=== PATIENT | female | born 1930 | race Caucasian/White ===

== ENCOUNTER 2017-11-25 09:59 | Inpatient (IN) | payer MEDICARE ==
[~2017-11-25] VITALS: Ht 175.3 cm; Wt 85.0 kg
[~2017-11-25 09:59] MED LIST: AMOXICILLIN250 MG PO; BIOTIN2500 MCG PO; CARAFATE1 GM/10 ML PO; CARVEDILOL3.125 MG PO; CHLORPROPAMIDE250 MG PO; COREG3.125 MG PO; DESMOPRESSIN A0.2 MG PO; FUROSEMIDE40 MG PO; HYDROCODONE-APAP PO; HYOSCYAMINE0.125 MG PO; ISOSORBIDE MONO30 MG PO; LEVOTHYROXINE100 MCG PO; LISINOPRIL2.5 MG PO; LYRICA75 MG PO; Lisinopril PO; MECLIZINE HCL12.5 MG PO; MELATONIN3 MG PO; METOPROLOL TART25 MG PO; MINOCYCLINE HCL50 MG PO; MULTIVITAMINS1 EAC8 PO; NIASPAN1000 MG PO; NIASPAN500 MG PO; OMEPRAZOLE40 MG PO; POTASSIUM CHLO10 ME1 PO; PRAVASTATIN SOD40 MG PO; PREDNISONE5 M1 PO; SYNTHROID150 MCG PO; SYNTHROID75 MCG PO; TYLENOL # 31 EA PO; XARELTO10 MG PO; ZOFRAN8 MG PO; ZOLPIDEM TARTRA10 MG PO; tylenol pm PO
[2017-11-25] MEDS ORDERED: TETANUS/DIPHTHERIA TOX ADULT 0.5 ML SYR IM ONE ×2 (10:15→12:45)
[2017-11-25] MEDS ORDERED: SODIUM CHLORIDE 0.9% 500ML 500 ML IV STA (10:28)
[2017-11-25] MEDS ORDERED: ONDANSETRON HCL INJ 2 MG/ML VIAL IV STA (10:28)
[2017-11-25] MEDS ORDERED: ONDANSETRON HCL 4 MG ORAL DISINTEGRATING TAB ONE (10:31)
[2017-11-25 11:38] LABS: BASOPHILS % 0.3 % (0.0-1.0); EOSINOPHILS # (AUTO) 0.4 (0.0-0.4); EOSINOPHILS % 4.6 % (0.0-6.0); HEMATOCRIT 38.8 % (34.2-44.1); HEMOGLOBIN 12.3 g/dL (12.0-16.0); LYMPHOCYTES # (AUTO) 2.2 (1.0-3.2); LYMPHOCYTES % 23.2 % (18.0-39.1); MEAN CORPUSCULAR HEMOGLOBIN 30.8 pg (28-32); MEAN CORPUSCULAR HGB CONC 31.7 g/dL (31-35); MONOCYTES # (AUTO) 0.8 (0.2-0.8); MONOCYTES % 8.5 % (4.4-11.3); NEUTROPHILS # (AUTO) 5.9 (2.1-6.9); NEUTROPHILS % 63.1 % (38.7-80.0); PLATELET COUNT 208 x10e3/uL (140-360); RED CELL DISTRIBUTION WIDTH 13.7 % (11.7-14.4)
[2017-11-25 11:53] LABS: INR 3.71; PROTHROMBIN TIME 34.5 seconds (11.9-14.5)
[2017-11-25 11:54] LABS: PARTIAL THROMBOPLASTIN TIME 49.2 seconds (23.8-35.5)
[2017-11-25 12:00] LABS: ALANINE AMINOTRANSFERASE 36 IU/L (0-55); ALBUMIN/GLOBULIN RATIO 1.3 (0.8-2.0); ALKALINE PHOSPHATASE 129 IU/L (40-150); ANION GAP 14.1 mmol/L (8-16); BLOOD UREA NITROGEN 29 mg/dL (7-26); BUN/CREATININE RATIO 14 (6-25); CARBON DIOXIDE 35 mmol/L (22-29); CHLORIDE 91 mmol/L (98-107); CREATINE KINASE 72 IU/L (29-168); CREATININE, SERUM 2.03 mg/dL (0.57-1.11); EST GLOMERULAR FILTRATION RATE 23 ML/MIN (60-); GLUCOSE 118 mg/dL (74-118); POTASSIUM 4.1 mmol/L (3.5-5.1); SODIUM 136 mmol/L (136-145)
--- NOTE | 2017-11-25 12:10 | Diagnostic Imaging Report ---
History: Fall, pain Comparison studies:None Technique: Axial images were obtained from the brain, face and cervical spine. Coronal and sagittal reconstructions obtained from the axial data. Intravenous contrast: None Findings: Head CT: Scalp/skull: An acute right frontal/periorbital scalp hematoma is associated with subcutaneous emphysema but no hyperdense foreign bodies. No underlying fractures. Extra-axial spaces: No masses. No fluid collections. Brain sulci: Mildly prominent. Ventricles: Normal in size and configuration. No hydrocephalus. Parenchyma: Subtle hypodensities in the supratentorial white matter are small vessel ischemic changes. No masses, hemorrhage, acute or chronic cortical vascular insults. Sellar/suprasellar region: No abnormalities Craniocervical junction: Patent foramen magnum. No Chiari one malformation. Maxillofacial CT: No acute fractures A focally depressed fracture of the right nasal bone is chronic No additional maxillofacial bone abnormalities. Orbits: Bilateral lens prostheses. Otherwise, no abnormalities. Paranasal sinuses: Mild scattered mucosal thickening. Cervical spine CT: Airway: Patent. Fractures: None. Soft tissues: No gross abnormalities. Atlantoaxial articulation: Intact. Alignment: Normal lordosis. No scoliosis. Cervicomedullary junction: No abnormalities. The foramen magnum is patent. Vertebrae: No infection or neoplasm. Postoperative changes from anterior cervical discectomy and fusion at C6-C7. Postoperative changes from laminectomy at C3. 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 Degenerative changes: Moderately degenerated discs from C3 to C6. Foraminal stenosis, moderate right at C2-3 and C3-4, bilaterally at C4-5 due to uncovertebral arthrosis. Degenerative spinal canal stenosis is moderate from C3 to C6 due to disc osteophyte complexes. Incidental atherosclerotic calcifications at the carotid siphons and intradural vertebral arteries IMPRESSION: Head CT: 1. Acute right frontal/periorbital scalp hematoma. No fractures 2. No intracranial abnormalities. Chronic findings: 1. Mild generalized volume loss 2. Mild supratentorial white matter is normal vessel ischemic changes Facial CT: 1. No acute fractures. 2. Chronic focally depressed fracture of the right nasal bone No additional significant abnormalities. Cervical spine CT: 1. No acute abnormalities. No fractures 2. 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 Bilateral laminectomies at C3, anterior cervical discectomy and fusion at C6-C7. 4. Degenerative spinal canal and foraminal stenosis as described Signed by: Dr. Michael Levine M.D. on 11/25/2017 5:40 PM
--- NOTE | 2017-11-25 12:46 | Diagnostic Imaging Report ---
PROCEDURE:WRIST COMPLETE RIGHT TECHNIQUE:AP, lateral and oblique views right wrist INDICATION:Right wrist pain status post fall COMPARISON:None. FINDINGS: Right wrist and regional skeleton are intact and in anatomic alignment. Intact soft tissues. No foreign bodies. Degenerative changes at the thumb base. CONCLUSION: No evidence of acute traumatic injury. Dictated by: Joselo Jay M.D. on 11/25/2017 at 12:50 Electronically approved by: Joselo Jay M.D. on 11/25/2017 at 12:50
[2017-11-25] MEDS ORDERED: ONDANSETRON HCL INJ 2 MG/ML VIAL IV PRN (14:00)
[2017-11-25] MEDS ORDERED: TRAMADOL HCL 50 MG TAB PO PRN (14:00)
[2017-11-25] MEDS: SODIUM CHLORIDE 0.9% 1000ML 1,000 ML IV SCH ×2 (14:20→21:00)
[2017-11-25] MEDS ORDERED: PERCOCET 10-321 EACH PO (15:07)
[2017-11-25 17:56] VITALS: BP 148/74
[2017-11-25 18:13] VITALS: BP 148/74
[2017-11-25 18:30] VITALS: BP 148/74
[2017-11-25] MEDS ORDERED: DICLOFENAC TOP (18:41)
[2017-11-25] MEDS ORDERED: CENTRUM SILVER1 EAC3 PO (18:41)
[2017-11-25] MEDS ORDERED: SYNTHROID50 MCG PO (18:41)
[2017-11-25 20:00] VITALS: BP 148/77
[2017-11-25] MEDS ORDERED: MELATONIN 3 MG TAB PO SCH (21:00)
[2017-11-25] MEDS ORDERED: ZOLPIDEM TARTRATE 10 MG TAB PO SCH (21:00)
[2017-11-25] MEDS ORDERED: PRAVASTATIN 20 MG TAB PO SCH (21:00)
[2017-11-25] MEDS ORDERED: MULTIVITAMINS/MINERALS TAB PO SCH (21:00)
[2017-11-25] MEDS ORDERED: MELATONIN 5 MG TABLET PO SCH (21:00)
[2017-11-25] MEDS ORDERED: NON-FORMULARY MEDICATION (Pravastatin Sodium 40 MG) PO SCH (21:00)
[2017-11-25] MEDS ORDERED: DESMOPRESSIN ACETATE 0.2 MG TABLET PO SCH (21:00)
[2017-11-25] MEDS ORDERED: NON-FORMULARY MEDICATION (Mu-Vits-Min Th/Lycopene/Lutein (Centrum Silver Tablet) 1 TAB) PO SCH (21:00)
[2017-11-25 21:03] LABS: CREATINE KINASE MB 1.5 ng/mL (0-5.0)
[2017-11-26 00:32] VITALS: BP 143/81
[2017-11-26 04:57] VITALS: BP 135/82
[2017-11-26] MEDS ORDERED: LEVOTHYROXINE SODIUM 100 MCG TAB PO SCH (06:00)
[2017-11-26 06:29] LABS: BASOPHILS % 0.4 % (0.0-1.0); EOSINOPHILS # (AUTO) 0.3 (0.0-0.4); EOSINOPHILS % 4.6 % (0.0-6.0); HEMATOCRIT 35.9 % (34.2-44.1); HEMOGLOBIN 11.3 g/dL (12.0-16.0); LYMPHOCYTES # (AUTO) 2.1 (1.0-3.2); LYMPHOCYTES % 27.9 % (18.0-39.1); MEAN CORPUSCULAR HEMOGLOBIN 30.5 pg (28-32); MEAN CORPUSCULAR HGB CONC 31.5 g/dL (31-35); MEAN CORPUSCULAR VOLUME 96.8 fL (81-99); MONOCYTES # (AUTO) 0.7 (0.2-0.8); MONOCYTES % 9.9 % (4.4-11.3); NEUTROPHILS # (AUTO) 4.2 (2.1-6.9); NEUTROPHILS % 56.9 % (38.7-80.0); PLATELET COUNT 190 x10e3/uL (140-360); RED BLOOD COUNT 3.71 x10e6/uL (3.6-5.1); RED CELL DISTRIBUTION WIDTH 13.7 % (11.7-14.4)
[2017-11-26] MEDS ORDERED: LEVOTHYROXINE SODIUM 50 MCG TAB PO SCH (06:30)
[2017-11-26] MEDS ORDERED: FAMOTIDINE20 MG PO (07:00)
[2017-11-26 07:03] LABS: CREATINE KINASE 79 IU/L (29-168)
[2017-11-26 07:16] LABS: CHOL/HDL RATIO 2.4 (3.0-3.6)
[2017-11-26 07:22] LABS: ALBUMIN 3.7 g/dL (3.5-5.0); ALBUMIN/GLOBULIN RATIO 1.4 (0.8-2.0); ANION GAP 13.3 mmol/L (8-16); CALCIUM 8.4 mg/dL (8.4-10.2); CREATININE, SERUM 1.69 mg/dL (0.57-1.11); POTASSIUM 4.3 mmol/L (3.5-5.1)
[2017-11-26] MEDS: ONDANSETRON HCL 4 MG ORAL DISINTEGRATING TAB PO SCH ×3 (07:30→16:58)
[2017-11-26] MEDS ORDERED: NON-FORMULARY MEDICATION (Ondansetron Hcl (Zofran) 8 MG) PO SCH (07:30)
[2017-11-26] MEDS: CARVEDILOL 12.5 MG TAB PO SCH ×2 (07:30→16:59)
[2017-11-26] MEDS: FAMOTIDINE 20 MG TAB PO SCH ×2 (07:30→16:58)
[2017-11-26 07:43] VITALS: BP 153/75
[2017-11-26] MEDS ORDERED: LACTULOSE SYRUP 20 GM/30 ML UDC PO ONE (08:00)
[2017-11-26 08:20] VITALS: BP 153/75
--- NOTE | 2017-11-26 08:50 | Consultation ---
DATE OF CONSULTATION: November 25, 2017 CARDIOLOGY CONSULTATION REASON FOR CONSULTATION: Fall, AFib, and on Xarelto. HPI: This is an 87-year-old female that presented status post fall. According to the at the bedside and the patient, they went to [employer]. She was walking and her shoe got stuck on her, and she accidentally had a fall. She denied any chest pain, any palpitation, any dizziness, any shortness of breath, or diaphoresis. She has a history of CAD, AFib, and a permanent pacemaker. 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 PAST SURGICAL HISTORY: Cholecystectomy, permanent pacemaker, pituitary removal, hemorrhoidectomy, right and left knee surgery replacement, and shoulder repair. MEDICATIONS: See mid list. ALLERGIES: SHE IS ALLERGIC TO FLU SHOT, PLASTIC TAPE AND NITROGLYCERIN. SOCIAL HISTORY: No smoking. No drinking. She lives at home with her . FAMILY HISTORY: Positive for diabetes and CAD. REVIEW OF SYSTEMS: Negative except those mentioned above. She is status post fall. PHYSICAL EXAMINATION VITALS: Temperature 97, heart rate 80, blood pressure 135/82, respirations 19, oxygen saturation 96% on room air. GENERAL: She is awake, alert and oriented times 3. HEENT: Mucous membrane moist. NECK: Supple. LUNGS: Bilateral clear to auscultation. CARDIOVASCULAR: Irregularly irregular. ABDOMEN: Soft. NEUROLOGICAL: Intact. She is able to move all extremities. EXTREMITIES: Bilateral lower extremities with no edema. LABS: Sodium 133, potassium 4.3, chloride 92, CO2 32, BUN 23, creatinine 1.69, glucose 82. White blood cells 7.41, hemoglobin 11.3, hematocrit 35.9, and platelets 190,000. PT 34.5, PTT 49.2 and INR 3.71 IMPRESSION 1. Status post fall. 2. Hematoma on the forehead. 3. Coronary artery disease with permanent pacemaker. 4. Atrial fibrillation. 5. Renal insufficiency. 6. Constipation. ASSESSMENT AND PLAN 1. Will go ahead and get an echocardiogram to reassess the LV and the valve function. She had multiple bruises and hematoma on the forehead. INR is 3.71. 2. Will go ahead and hold the Xarelto. 3. Will get bilateral carotid Doppler to rule out any occlusion. 4. She recently had her permanent pacemaker checked in the office with good function. Will continue the IV fluids to help with the renal function. She complained of constipation. Will go ahead and put her on Colace and lactulose. Further cardiac workup pending clinical course. Thank you for this consultation. DICTATED BY DARIA CASTRO NP Job#: [id number] RI
[2017-11-26] MEDS ORDERED: NIACIN 500 MG TABSR PO SCH (09:00)
[2017-11-26] MEDS ORDERED: ISOSORBIDE MONONITRATE 30 MG TAB CR PO SCH (09:00)
[2017-11-26] MEDS ORDERED: DOCUSATE SODIUM LIQD 100 MG/10 ML UDC NG SCH (09:00)
[2017-11-26] MEDS ORDERED: (Biotin 5,000 MCG) PO SCH (09:00)
[2017-11-26] MEDS ORDERED: CARVEDILOL 3.125 MG TAB PO SCH (09:00)
[2017-11-26] MEDS ORDERED: NIACIN 500 MG PO SCH (09:00)
[2017-11-26] MEDS ORDERED: POTASSIUM CHLORIDE 10 MEQ TABCR PO SCH (09:00)
[2017-11-26] MEDS ORDERED: FUROSEMIDE 40 MG TAB PO SCH (09:00)
[2017-11-26] MEDS ORDERED: PREDNISONE 5 MG TAB PO SCH (09:00)
[2017-11-26] MEDS ORDERED: NON-FORMULARY MEDICATION (Prednisone 5 MG) PO SCH (09:00)
[2017-11-26] MEDS: OXYCODONE/ACETAMINOPHEN 5-325 1 EACH TABLET PO PRN ×2 (09:37→18:10)
[2017-11-26 12:08] VITALS: BP 132/68
[2017-11-26] MEDS: SODIUM CHLORIDE 0.9% 1000ML 1,000 ML IV SCH (14:21)
--- NOTE | 2017-11-26 15:38 | History and Physical ---
DATE OF SERVICE: November 25, 2017 TIME: 3:00 p.m. PRIMARY CARE PHYSICIAN: Dr. Chaney CHIEF COMPLAINT: Fall. HISTORY OF PRESENT ILLNESS: This is an 87-year-old woman with a history of congestive heart failure, urinary tract infection, who was going to [employer] when she slipped on the wet ground outside and fell hitting her head. She came to the hospital. Imaging negative for any fracture. She was admitted for further evaluation and management. PAST MEDICAL HISTORY: Pituitary tumor, status post resection in , hypertension, type unknown, generalized weakness, urinary tract infection, hypothyroidism, following pituitary resection, chronic systolic congestive heart failure, hematuria, postmenopausal bleed, hyperlipidemia, atrial fibrillation, chronic kidney disease, stage 3. PAST SURGICAL HISTORY: Permanent pacemaker placement, cholecystectomy, hemorrhoidectomy, resection of pituitary tumor in the , which was benign, bilateral knee replacement. ALLERGIES: PER ELECTRONIC MEDICAL RECORD. FAMILY/SOCIAL HISTORY: Patient's mother has history of breast cancer in her 80s. Patient is . She has 2 children. No alcohol, illicits or cigarettes. MEDICATIONS: Per electronic medical records. REVIEW OF SYSTEMS: Denies any fever, chills, shortness of breath, nausea, vomiting, diarrhea or leg pain. Denies any dysuria or chest pain. PHYSICAL EXAM VITAL SIGNS: Have been reviewed. GENERAL APPEARANCE: A tired-appearing woman resting in the bed. HEENT: Anicteric. She has a right forehead hematoma. Right eye almost closed due to surrounding edema and purpura/bruising. CARDIOVASCULAR: Normal S1, S2. LUNGS: Good breath sounds. ABDOMEN: Soft, nontender, nondistended. EXTREMITIES: No edema or calf tenderness. NEUROLOGIC: Alert, oriented times 3. Vision is normal in left eye. Right eye almost closed. SKIN: Dry. PSYCHIATRIC: Flat affect. LABS: Reviewed. MEDICATIONS: Reviewed. ASSESSMENT AND PLAN: An 87-year-old woman. 1. Fall. 2. Right scalp hematoma. 3. Right periorbital hematoma. 4. Chronic systolic congestive heart failure. 5. Acute kidney injury secondary to chronic kidney disease stage 3. 6. Paroxysmal atrial fibrillation. 7. Hypothyroidism. 8. Hypertension. 9. Hyperlipidemia. 10. Desmopressin use for pituitary surgery. PLAN 1. Physical therapy consultation. 2. Restart home antihypertensive medication. 3. Continue Synthroid. 4. Hold Xarelto today to reduce the risk of bleeding at the trauma site. Plan to restart in 1 or 2 days. 5. Check TSH. 6. Check lipid panel. 7. Cardiac enzymes negative. 8. Use Pepcid while patient is on anticoagulation. 9. Reverse coagulopathy if patient begins bleeding . 10. SNF evaluation. Job#: [id number] CQ
[2017-11-26] MEDS ORDERED: SIMVASTATIN 20 MG TAB PO SCH (21:00)
--- NOTE | 2017-12-02 01:38 | Discharge Summary ---
PRINCIPAL DIAGNOSES 1. Fall. 2. Right scalp hematoma. 3. Right periorbital hematoma. 4. Chronic systolic congestive heart failure. 5. Acute kidney injury. 6. Chronic kidney disease, stage 3. 7. Paroxysmal atrial fibrillation. 8. Hypothyroidism. 9. Hypertension. 10. Hyperlipidemia. SECONDARY DIAGNOSIS: Chronic systolic congestive heart failure. CHIEF COMPLAINT: Fall. HISTORY OF PRESENT ILLNESS: An 87-year-old female with fall. Please refer to H and P for further details. HOSPITAL COURSE: Patient had a fall with resultant right scalp hematoma and right periorbital hematoma. She had chronic systolic congestive heart failure and acute kidney injury on chronic kidney disease stage 3. Physical therapy was consulted. Antihypertensive medication was restarted. Xarelto was put on hold due to risk of bleeding. Cardiac enzymes were negative. Patient received Pepcid for GI prophylaxis. Patient was transferred to the skilled facility for physical therapy needs. DISCHARGE MEDICATION: Per electronic medical record. FOLLOWUP: With primary care doctor in 1 week. CONDITION ON DISCHARGE: Stable and improving. DISCHARGE LOCATION: retirement facility. SCARLETT CONNER MD Job#: [id number] CQ
== END 2017-11-26 18:41 | disposition home or self-care (01) | DRG 580 ==
LOC: ER 09:59 → ERHOLD 14:11 → MED/SURG 17:40
PROVIDERS: ADMIT Internal Medicine; ATTEND Internal Medicine
PROC: 0JQ10ZZ Repair Face Subcutaneous Tissue and Fascia, Open Approach (ICD-10-PCS; principal; 2017-11-25)
DX: S00.03XA Contusion of scalp, initial encounter (principal); I50.22 Chronic systolic (congestive) heart failure; I13.0 Hypertensive heart and chronic kidney disease with heart failure and stage 1 through stage 4 chronic kidney disease, or unspecified chronic kidney disease; N17.9 Acute kidney failure, unspecified; S05.11XA Contusion of eyeball and orbital tissues, right eye, initial encounter; N18.3 Chronic kidney disease, stage 3 (moderate); I48.0 Paroxysmal atrial fibrillation; E03.9 Hypothyroidism, unspecified; E78.5 Hyperlipidemia, unspecified; Z95.0 Presence of cardiac pacemaker; I25.10 Atherosclerotic heart disease of native coronary artery without angina pectoris; W01.0XXA Fall on same level from slipping, tripping and stumbling without subsequent striking against object, initial encounter; Y93.89 Activity, other specified; Y92.22 Religious institution as the place of occurrence of the external cause; K59.00 Constipation, unspecified
CPT/HCPCS: 36415; 70450; 70486; 72125; 80053; 80061; 82550; 82553; 83880; 84484; 85025; 85610; 85730; 90471; 90714; 93005; 93306; 93880; 97139; 99284; J7030; J7040; J7512

== ENCOUNTER → 2017-12-23 | Day surgery (SDC) | payer MEDICARE ==
[~2017-12-23] MED LIST changes: +CENTRUM SILVER1 EAC3 PO; +DICLOFENAC TOP; +FAMOTIDINE20 MG PO; +PERCOCET 10-321 EACH PO; +POTASSIUM CHLO20 ME1 PO; +PROPOFOL IV EMULSION 10 MG/ML 20 ML VIAL ONE; +SYNTHROID50 MCG PO
== END | disposition home or self-care (01) ==
LOC: OR 05:36
PROVIDERS: ATTEND Internal Medicine Gastroenterology
DX: K22.2 Esophageal obstruction (principal); K29.50 Unspecified chronic gastritis without bleeding; Q39.4 Esophageal web; K21.9 Gastro-esophageal reflux disease without esophagitis; K44.9 Diaphragmatic hernia without obstruction or gangrene; K31.89 Other diseases of stomach and duodenum; Q40.2 Other specified congenital malformations of stomach; E66.3 Overweight; I25.10 Atherosclerotic heart disease of native coronary artery without angina pectoris; I11.0 Hypertensive heart disease with heart failure; I50.9 Heart failure, unspecified; E27.40 Unspecified adrenocortical insufficiency; Z79.02 Long term (current) use of antithrombotics/antiplatelets; Z68.28 Body mass index [BMI] 28.0-28.9, adult; Z95.0 Presence of cardiac pacemaker; Z96.653 Presence of artificial knee joint, bilateral; Z83.79 Family history of other diseases of the digestive system
CPT/HCPCS: 43233; 43239; 88305; 88312

== ENCOUNTER 2017-12-30 10:04 | Inpatient (IN) | payer MEDICARE ==
[~2017-12-30] VITALS: Ht 172.7 cm; Wt 84.5 kg
[~2017-12-30 10:04] MED LIST changes: -PROPOFOL IV EMULSION 10 MG/ML 20 ML VIAL ONE
[2017-12-30] MEDS ORDERED: SODIUM CHLORIDE 0.9% 1000ML 2,000 ML IV ONE (10:15)
--- NOTE | 2017-12-30 10:20 | Consultation ---
DATE OF CONSULTATION: NO DICTATION, LENGTH 0:1 Job#: [id number] RI
[2017-12-30] MEDS ORDERED: DIATRIZOATE MEGL/DIATRIZOA SOD 30 ML BTL PO ONE (10:29)
[2017-12-30 11:13] LABS: BASOPHILS # (AUTO) 0.1 (0.0-0.1); BASOPHILS % 0.5 % (0.0-1.0); EOSINOPHILS # (AUTO) 0.5 (0.0-0.4); EOSINOPHILS % 4.8 % (0.0-6.0); HEMATOCRIT 31.5 % (34.2-44.1); HEMOGLOBIN 10.2 g/dL (12.0-16.0); LYMPHOCYTES # (AUTO) 3.8 (1.0-3.2); LYMPHOCYTES % 34.4 % (18.0-39.1); MEAN CORPUSCULAR HEMOGLOBIN 30.1 pg (28-32); MEAN CORPUSCULAR HGB CONC 32.4 g/dL (31-35); MEAN CORPUSCULAR VOLUME 92.9 fL (81-99); MONOCYTES # (AUTO) 0.9 (0.2-0.8); MONOCYTES % 8.4 % (4.4-11.3); NEUTROPHILS # (AUTO) 5.6 (2.1-6.9); NEUTROPHILS % 51.3 % (38.7-80.0); PLATELET COUNT 214 x10e3/uL (140-360); RED BLOOD COUNT 3.39 x10e6/uL (3.6-5.1); RED CELL DISTRIBUTION WIDTH 15.2 % (11.7-14.4)
[2017-12-30] MEDS ORDERED: SODIUM CHLORIDE 0.9% 1000ML 1,000 ML IV ONE ×2 (11:15→12:15)
[2017-12-30 11:17] LABS: INR 1.3; PROTHROMBIN TIME 15.2 seconds (11.9-14.5)
[2017-12-30 11:18] LABS: PARTIAL THROMBOPLASTIN TIME 31.2 seconds (23.8-35.5)
[2017-12-30 11:25] LABS: BILIRUBIN,URINE NEGATIVE (NEGATIVE); COLOR,URINE YELLOW (YELLOW); KETONES,URINE NEGATIVE (NEGATIVE); LEUKOCYTE ESTERASE ,URINE 2+ (NEGATIVE); NITRITE,URINE NEGATIVE (NEGATIVE); PROTEIN,URINE DIPSTICK NEGATIVE (NEGATIVE); URINE UROBILINOGEN 0.2 mg/dL (0.2 - 1)
[2017-12-30 11:25] LABS: ALBUMIN 3.1 g/dL (3.5-5.0); ALBUMIN/GLOBULIN RATIO 1.2 (0.8-2.0); ANION GAP 13.6 mmol/L (8-16); CALCIUM 9.9 mg/dL (8.4-10.2); CREATININE, SERUM 1.44 mg/dL (0.57-1.11); MAGNESIUM 1.9 MG/DL (1.3-2.1); PHOSPHORUS 2.1 MG/DL (2.3-4.7); POTASSIUM 3.6 mmol/L (3.5-5.1)
--- NOTE | 2017-12-30 11:25 | Diagnostic Imaging Report ---
PROCEDURE: A single AP view of the chest. COMPARISON: [facility], , CHEST 2 VIEWS, 05/10/2017, 5:59. INDICATIONS: GI BLEED FINDINGS: Lines/tubes: Stable left upper chest multilead cardiac device. Lungs: The lungs are well inflated and clear. There is no evidence of pneumonia or pulmonary edema. Pleura: There is no pleural effusion or pneumothorax. Heart and mediastinum: The heart and the mediastinum are unremarkable. Bones: No acute bony abnormality. IMPRESSION: 1. No acute cardiopulmonary abnormalities. Troy Bansal M.D. Dictated by: Troy Bansal M.D. on 12/30/2017 at 11:31 Electronically approved by: Troy Bansal M.D. on 12/30/2017 at 11:31
[2017-12-30 11:41] LABS: BACTERIA,URINE MANY /HPF; RBC,URINE 0-5 /HPF (0-5); WBC,URINE (MAN) >50 /HPF (0-5)
[2017-12-30 11:42] LABS: EPITHELIAL CELLS,URINE RARE /LPF
[2017-12-30 11:43] LABS: CLARITY,URINE CLOUDY (CLEAR)
--- NOTE | 2017-12-30 12:22 | Diagnostic Imaging Report ---
History: Fall, pain Comparison studies:CT head 11/25/2017 Technique: Axial images were obtained from the brain and cervical spine. Coronal and sagittal images reconstructed from the axial data. Intravenous contrast: None Findings: Head CT: Scalp/skull: Decreased left frontal scalp hematoma with residual skull thickening. No fractures, blastic or lytic lesions. Brain sulci: Appropriate for age. Ventricles: Normal in size and configuration. No hydrocephalus. Extra-axial spaces: No masses. No fluid collections. Parenchyma: Small hypodensities of the periventricular and deep white matter, nonspecific. No masses, hemorrhage, acute or chronic cortical vascular insults. Sellar/suprasellar region: No abnormalities. Craniocervical junction: Patent foramen magnum. No Chiari one malformation. Partial opacification and periosteal thickening of the right maxillary sinus, related to chronic inflammation. Bilateral cataract surgery changes. Cervical spine CT: Fractures: None. Soft tissues: No gross abnormalities. Atlantoaxial articulation: No acute abnormality. Alignment: Straightening of the normal lordosis. No scoliosis. Cervicomedullary junction: No abnormalities. Patent foramen magnum. Congenital fusion of C2 and C3. Laminectomy changes at C4. Anterior fusion with plate and screws at C6-7. Posterior fusion defect at C1 Vertebrae: No infection or neoplasm. Degenerative changes: Diffuse disc degeneration with decreased intervertebral space. Uncinate process hypertrophy and facet hypertrophy results in multilevel [id number] foraminal narrowing more significant at C5-6 and C6-7. Incidental findings: None. Impression: Head CT: 1. No acute intracranial abnormality. 2. Mild chronic microvascular ischemic changes of the white matter and mild diffuse volume loss. Cervical spine CT: 1. No acute abnormalities. 2. Cannot exclude ligament, spinal cord and or vascular abnormalities on the basis of this examination. Signed by: DR Oswaldo Acosta M.D. on 12/30/2017 12:19 PM
[2017-12-30] MEDS ORDERED: PANTOPRAZOLE 40 MG 10ML VIAL IV STA (12:56)
[2017-12-30] MEDS ORDERED: CEFTRIAXONE SOD 1 GM VIAL IV ONE (13:00)
[2017-12-30 14:35] LABS: BASOPHILS % 0.2 % (0.0-1.0); EOSINOPHILS # (AUTO) 0.4 (0.0-0.4); EOSINOPHILS % 4.7 % (0.0-6.0); HEMATOCRIT 28.9 % (34.2-44.1); HEMOGLOBIN 9.2 g/dL (12.0-16.0); LYMPHOCYTES # (AUTO) 3.2 (1.0-3.2); LYMPHOCYTES % 35.7 % (18.0-39.1); MEAN CORPUSCULAR HEMOGLOBIN 29.9 pg (28-32); MEAN CORPUSCULAR HGB CONC 31.8 g/dL (31-35); MEAN CORPUSCULAR VOLUME 93.8 fL (81-99); MONOCYTES # (AUTO) 0.8 (0.2-0.8); MONOCYTES % 8.8 % (4.4-11.3); NEUTROPHILS # (AUTO) 4.5 (2.1-6.9); NEUTROPHILS % 49.9 % (38.7-80.0); PLATELET COUNT 183 x10e3/uL (140-360); RED BLOOD COUNT 3.08 x10e6/uL (3.6-5.1); RED CELL DISTRIBUTION WIDTH 15.2 % (11.7-14.4)
[2017-12-30 15:00] LABS: ANION GAP 12.6 mmol/L (8-16); CALCIUM 7.9 mg/dL (8.4-10.2); CREATININE, SERUM 1.26 mg/dL (0.57-1.11); POTASSIUM 3.6 mmol/L (3.5-5.1)
--- NOTE | 2017-12-30 16:07 | Diagnostic Imaging Report ---
PROCEDURE: CT ABDOMEN AND PELVIS WITHOUT CONTRAST TECHNIQUE: The abdomen and pelvis were scanned utilizing a multidetector helical scanner from the diaphragm to the lesser trochanter after the oral administration of dilute Gastrografin. No IV contrast was administered due to low GFR. Coronal and sagittal multiplanar reformations were obtained. COMPARISON: [facility], CT, CT ABDOMEN/PELVIS , 05/05/2017, 16:18. INDICATIONS: LEFT LOWER QUADRANT PAIN FINDINGS: ABSENCE OF INTRAVENOUS CONTRAST DECREASES SENSITIVITY FOR DETECTION OF FOCAL LESIONS AND VASCULAR PATHOLOGY. LOWER THORAX: Distal portion of cardiac wires noted in the right atrium, right ventricle and coronary sinus. Atherosclerotic calcification of the coronary arteries and thoracic aorta. Stable cardiomegaly. HEPATOBILIARY: No focal hepatic lesions. No biliary ductal dilatation. Gallbladder is absent, with cholecystectomy clips in the gallbladder fossa SPLEEN: No splenomegaly. PANCREAS: Unchanged marked pancreatic fatty replacement. No focal mass or ductal dilation. ADRENALS: No adrenal nodules. KIDNEYS/URETERS: No hydronephrosis, stones, or solid mass lesions. Unchanged left renal atrophy. Stable 1.4 cm cystic lesion in the posterior interpolar left kidney and 1.0 cm cystic lesion in the superior pole of the right kidney (series 2, images 26 and sagittal image 44, respectively), which measure fluid density on the current exam. PELVIC ORGANS/BLADDER: Bladder is decompressed, with a Hahn catheter in place. PERITONEUM / RETROPERITONEUM: No free air or fluid. LYMPH NODES: No lymphadenopathy. VESSELS: Atherosclerotic calcification of the abdominal aorta and iliac vessels. GI TRACT: No bowel dilation or evidence of obstruction. No pericolonic inflammatory changes. Appendix is identified, and normal in caliber. Stable sigmoid diverticulosis, without diverticulitis. BONES AND SOFT TISSUES: No aggressive lytic lesions. Multilevel degenerative disc changes in the lumbosacral spine, with stable anterior wedging of the L4 vertebral body. Generalized osteopenia. Soft tissues are unremarkable. IMPRESSION: 1. no acute abdominopelvic abnormalities. Specifically, no acute abnormal findings in the left lower quadrant to explain the patient's pain. Troy Bansal M.D. Dictated by: Troy Bansal M.D. on 12/30/2017 at 16:11 Electronically approved by: Troy Bansal M.D. on 12/30/2017 at 16:11
[2017-12-30] MEDS ORDERED: ACETAMINOPHEN 325 MG TAB PO STA (17:45)
[2017-12-30] MEDS ORDERED: ACETAMINOPHEN 325 MG TAB PO ONE (18:00)
[2017-12-30] MEDS ORDERED: FENTANYL CITRATE/PF 100MCG/2 ML INJ IV ONE (19:00)
[2017-12-30] MEDS: SODIUM CHLORIDE 0.9% 1000ML 1,000 ML IV SCH (21:13)
[2017-12-30 21:46] LABS: HEMATOCRIT 27.7 % (34.2-44.1)
[2017-12-30 23:00] VITALS: BP 111/70
[2017-12-31] VITALS (7 sets, daily range): BP systolic 107–133; BP diastolic 46–60
[2017-12-31 03:46] LABS: HEMATOCRIT 27.7 % (34.2-44.1); HEMOGLOBIN 9.2 g/dL (12.0-16.0)
[2017-12-31] MEDS: SODIUM CHLORIDE 0.9% 1000ML 1,000 ML IV SCH ×3 (04:42→20:39)
[2017-12-31] MEDS: LEVOTHYROXINE SODIUM 100 MCG TAB PO SCH (06:30)
[2017-12-31] MEDS: PANTOPRAZOLE 40 MG 10ML VIAL IV SCH (08:35)
--- NOTE | 2017-12-31 10:27 | History and Physical ---
PRIMARY CARE PHYSICIAN: Dr. Chaney. CHIEF COMPLAINT: Bloody stool. HISTORY OF PRESENT ILLNESS: This is an 87-year-old woman with a history of atrial fibrillation, on anticoagulation with Xarelto, now developing bright red blood per rectum for 1 day prior to visiting the hospital. Denies any abdominal pain, does have a history of GI bleed. PAST MEDICAL HISTORY: Atrial fibrillation, fall, right scalp hematoma, right periorbital hematoma due to fall, chronic systolic congestive heart failure, acute kidney injury, chronic kidney disease stage III, hypertension, hypothyroidism, hyperlipidemia, pituitary tumor status post resection in , urinary tract infection, post menopausal bleed and hematuria. PAST SURGICAL HISTORY: Permanent pacemaker placement, cholecystectomy, hemorrhoidectomy, resection of pituitary tumor in which was benign, right total knee replacement. ALLERGIES: PER ELECTRONIC MEDICAL RECORDS. FAMILY HISTORY/SOCIAL HISTORY: Patient is . She has 2 children. No alcohol, illicit, or cigarettes. MEDICATIONS: Per electronic medical records. REVIEW OF SYSTEMS: Denies any dizziness, chest pain, shortness of breath, fever, chills, sweats, nausea, vomiting, diarrhea. PHYSICAL EXAMINATION VITAL SIGNS: Have been reviewed. GENERAL: A tired-appearing woman resting in bed. HEENT: Anicteric. Pupils reactive to light. No oral lesions. CARDIOVASCULAR: Normal S1 and S2. LUNGS: Moderate breath sounds. ABDOMEN: Soft, nontender and nondistended. EXTREMITIES: No edema or calf tenderness. NEUROLOGICALLY: She is alert, oriented and appropriate. Moving all extremities. SKIN: Dry. PSYCHIATRIC: Flat affect. MUSCULOSKELETAL: Left-sided chest palpable pacemaker. LABS: Reviewed. ASSESSMENT: This is an 87-year-old woman 1. Acute gastrointestinal bleed. 2. Normocytic anemia. 3. Chronic kidney disease, stage 3. 4. Paroxysmal atrial fibrillation, on anticoagulant. 5. Urinary tract infection. 6. Systolic congestive heart failure, which is chronic. PLAN 1. Continue with IV PPI. 2. GI consultation. 3. Hold Xarelto. 4. Blood counts on hold and stable. We will continue to follow. 5. Renal function appears to be at baseline. 6. GI consultation, followup recommendations. Job#: [id number] SKI
[2017-12-31 11:51] LABS: HEMOGLOBIN 8.4 g/dL (12.0-16.0)
[2017-12-31] MEDS: DOCUSATE SODIUM 100 MG CAP PO SCH (16:26)
[2017-12-31] MEDS: POLYETHYLENE GLYCOL 3350 17 GM PACK PO SCH (16:26)
--- NOTE | 2017-12-31 18:32 | Consultation ---
DATE OF CONSULT: December 31, 2017 GASTROENTEROLOGY CONSULTATION REFERRING PHYSICIAN: Dr. Short. REASON FOR CONSULTATION: GI bleed. HISTORY OF PRESENT ILLNESS: Ms. Amin is a very pleasant 87-year-old woman with below history. She usually follows with my colleague, Dr. Hernandez and recently had upper endoscopy, during which time, a known GI stromal tumor was noted and esophageal dilation was performed. She has been having trouble with a presbyesophagus with difficulty with p.o. intake. Patient has been tender throughout the periphery of her abdomen. She has had nausea. She has had one episode of very dark large volume black stool yesterday. She is on Xarelto, which was last taken on Wednesday. PAST MEDICAL HISTORY 1. Atrial fibrillation, on anticoagulation. 2. CHF. 3. Renal insufficiency. 4. Hypertension. 5. Hypothyroid. 6. Dyslipidemia. 7. History of pituitary tumor, status post resection in 1969. 8. History of pacemaker. 9. Cholecystectomy. 10. Hysterectomy. 11. Hemorrhoidectomy. 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 MEDICATIONS AND ALLERGIES: Reviewed. Please see MAR medication reconciliation form. SOCIAL HISTORY: No alcohol, tobacco, or illicit substances. She has good family support. Her and daughter are at the bedside. REVIEW OF SYSTEMS: A 12-system review is positive for that mentioned in HPI. PHYSICAL EXAMINATION GENERAL: Pleasant, alert, in no acute distress. HEENT: Pupils are equal, round and reactive. NECK: Supple. LUNGS: Clear. CARDIAC: S1, S2. ABDOMEN: Soft. She is tender throughout the periphery of her abdomen. No rebound, guarding, or mass. EXTREMITIES: No clubbing, cyanosis, or edema. PSYCHIATRIC: Calm and cooperative. NEUROLOGIC: Alert. HEME/ONC: She has some bruising on her eyes. No adenopathy. SUBCUTANEOUS: She has a palpable pacemaker. Electronic health records reviewed for laboratory and radiologic studies as well as history. ASSESSMENT 1. Acute blood loss anemia. 2. Melena. 3. History of gastrointestinal stromal tumor. 4. Chronic anticoagulation with Xarelto, now held. 5. Renal insufficiency. PLAN: At the current time, we will advance her to a clear liquid diet and monitor her. She may need further endoscopy to evaluate for source of the bleeding. The differential diagnosis the GI stromal tumor, other upper GI pathology, small bowel and far colon. We will monitor her status and consider further endoscopic management. Thank you very much for asking me to see Ms. Amin. Any questions or concerns, please do not hesitate to contact me. Job#: [id number] DANIELLE
[2017-12-31 18:48] LABS: HEMATOCRIT 26.6 % (34.2-44.1); HEMOGLOBIN 8.5 g/dL (12.0-16.0)
[2017-12-31] MEDS ORDERED: VANCOMYCIN 1GM/NS 250 ML 250 ML IV ONE (21:00)
[2017-12-31] MEDS ORDERED: ZOLPIDEM TARTRATE 10 MG TAB PO SCH (21:00)
[2017-12-31] MEDS: ZOLPIDEM TARTRATE 5 MG TAB PO SCH (21:17)
[2017-12-31] MEDS: MELATONIN 5 MG TABLET PO SCH (21:18)
[2017-12-31] MEDS: PRAVASTATIN 20 MG TAB PO SCH (21:18)
[2018-01-01] VITALS (7 sets, daily range): BP systolic 112–130; BP diastolic 51–60
[2018-01-01 00:22] LABS: HEMATOCRIT 25.9 % (34.2-44.1); HEMOGLOBIN 8.4 g/dL (12.0-16.0)
[2018-01-01 05:18] LABS: HEMATOCRIT 27.5 % (34.2-44.1); HEMOGLOBIN 8.5 g/dL (12.0-16.0)
[2018-01-01] MEDS: LEVOTHYROXINE SODIUM 100 MCG TAB PO SCH (06:34)
[2018-01-01] MEDS: SODIUM CHLORIDE 0.9% 1000ML 1,000 ML IV SCH ×3 (07:10→20:39)
[2018-01-01] MEDS: POLYETHYLENE GLYCOL 3350 17 GM PACK PO SCH ×2 (09:00→17:00)
[2018-01-01] MEDS: PANTOPRAZOLE 40 MG 10ML VIAL IV SCH (09:00)
[2018-01-01] MEDS: DOCUSATE SODIUM 100 MG CAP PO SCH ×2 (09:00→17:00)
--- NOTE | 2018-01-01 10:09 | Consultation ---
DATE OF CONSULTATION: December 31, 2017 REASON FOR CONSULTATION: Atrial fibrillation. HPI: This is a pleasant, 87-year-old female who presented with GI bleed. According to the patient's , she was constipated last week and she finally had a huge BM that was real dark. He also stated that she was having some dysphagia and difficulty with swallowing, and she just had a recent EGD with Dr. Hernandez that showed that her GI stromal tumor was getting bigger and she was getting some workup. The stated that yesterday she had another bowel movement that was dark, and so he brought her into the emergency room for evaluation. She has a history of atrial fibrillation and has been anticoagulated with Xarelto. She denied any chest pain, any palpitations, any dizziness, any shortness of breath or diaphoresis. PAST MEDICAL HISTORY: Systolic CHF, chronic AFib, hypertension, hypothyroidism, hyperlipidemia, falls, constipation, chronic kidney disease, GERD, GI stromal tumor and pituitary tumor and UTI. PAST SURGICAL HISTORY: Cholecystectomy, permanent pacemaker placement, pituitary tumor removal, hemorrhoidectomy, right and left knee surgery replacement and shoulder repair. MEDICATION: See med list. ALLERGIES: SHE HAS MULTIPLE ALLERGIES. SEE CHART. SOCIAL HISTORY: No smoking, no drinking. She lives at home with her . FAMILY HISTORY: Positive for diabetes and CAD. REVIEW OF SYSTEMS: Negative except as mentioned above. She is positive for lower GI bleed and hemoglobin and hematocrit remain stable. PHYSICAL EXAMINATION VITALS: Temperature ____, blood pressure 130/59, respirations 18, oxygen saturation 96% on room air. GENERAL: She is awake, alert and oriented x3. HEENT: Mucous membranes moist. NECK: Supple. LUNGS: Bilaterally clear to auscultation. CARDIOVASCULAR: Irregularly irregular. ABDOMEN: Soft. EXTREMITIES: With trace edema. NEUROLOGIC: Intact. LABORATORY DATA: Sodium 137, potassium 3.6, chloride 107, CO2 of 21, BUN 51, creatinine 1.26, glucose 78, white blood cells 8.94, hemoglobin 8.5, hematocrit 27.5, platelets 183,000, PT 15.1, PTT 31.2, INR 1.30. IMPRESSION 1. Acute gastrointestinal bleed. 2. Anemia. 3. Coronary artery disease with permanent pacemaker. 4. Chronic atrial fibrillation. 5. Chronic systolic congestive heart failure. 6. Hypothyroidism. 7. History of gastrointestinal stromal tumor. PLAN: She was recently admitted last month after a fall. She had an echocardiogram done that showed moderate to severely impaired systolic function with EF of 30% to 35%. We will go ahead and hold the anticoagulation. She is pending GI workup. Hemoglobin remains stable. Further cardiac workup pending clinical course. Thank you for this consultation. Dictated by Lucas Puga NP Job#: [id number] SLADE
[2018-01-01 11:54] LABS: HEMOGLOBIN 8.5 g/dL (12.0-16.0)
[2018-01-01] MEDS: ACETAMINOPHEN 325 MG TAB PO PRN (17:00)
[2018-01-01 19:16] LABS: HEMATOCRIT 25.3 % (34.2-44.1)
--- NOTE | 2018-01-01 20:51 | Progress Note ---
DATE: January 01, 2018 TIME: 1914 SUBJECTIVE: Overnight, no acute events. REVIEW OF SYSTEMS: Patient denies dizziness and chest pain or shortness of breath. No nausea, vomiting, diarrhea, fever, chills, sweats, claudication or headache reported. OBJECTIVE/PHYSICAL EXAMINATION VITAL SIGNS: T 97.4, P 81, respirations 19, BP 112/51, pulse ox 99. GENERAL APPEARANCE: This is a very tired-appearing elderly female, resting supine in bed. HEENT: Normocephalic. PERRLA. Oral mucosa moist and intact. CV: S1 and S2 perceived without clicks, murmurs or rubs. RESPIRATORY: Bilateral breath sounds slightly diminished in all browne. ABDOMEN: Protuberant, soft, nontender, and not distended. EXTREMITIES: No edema or calf tenderness present, moves all 4. NEUROLOGIC: A and O times 3. No focal deficits noted on gross examination. SKIN: Dry. PSYCHIATRIC: Flat affect. MS: Left chest wall PPM palpated. LABS: Last H and H 8 and 25.3 respectively. Other labs reviewed. MEDICATIONS 1. NS at 125 IV. 2. Protonix drip. 3. Synthroid 100 mcg daily. 4. Nightly melatonin. 5. Ambien at nightly. 6. MiraLAX b.i.d. 7. Colace b.i.d. ASSESSMENT AND PLAN: This is an 87-year-old woman with 1. Acute gastrointestinal bleed. Continue gastrointestinal consultation and intravenous Protonix. 2. Normocytic anemia q.6 h hemoglobin and hematocrit. 3. Chronic kidney disease, stage 3. Continue to monitor and provide supportive IV fluids. 4. Paroxysmal atrial fibrillation. Anticoagulation on hold per gastrointestinal recommendations pending intervention/examination. 5. Urinary tract infection. Vancomycin times 1. Will recollect urine culture in the morning. 6. Systolic congestive heart failure; chronic. Continue to monitor. 7. Prophylaxis, sequential compression devices and proton pump inhibitor intravenously. DISPOSITION: Advancing diet per GI recommendations. Possible endoscopy pending. Dictated by: Dave Mckenzie NP Job#: [id number] CQ
[2018-01-01] MEDS: PRAVASTATIN 20 MG TAB PO SCH (21:00)
[2018-01-01] MEDS: ZOLPIDEM TARTRATE 5 MG TAB PO SCH (21:00)
[2018-01-01] MEDS: MELATONIN 5 MG TABLET PO SCH (21:00)
[2018-01-02] VITALS (8 sets, daily range): BP systolic 121–139; BP diastolic 57–81
[2018-01-02] MEDS: ACETAMINOPHEN 325 MG TAB PO PRN ×2 (02:05→09:15)
[2018-01-02] MEDS: SODIUM CHLORIDE 0.9% 1000ML 1,000 ML IV SCH ×3 (04:39→20:39)
[2018-01-02 05:22] LABS: HEMATOCRIT 27.4 % (34.2-44.1); HEMOGLOBIN 8.5 g/dL (12.0-16.0)
[2018-01-02] MEDS: LEVOTHYROXINE SODIUM 100 MCG TAB PO SCH (06:16)
[2018-01-02] MEDS: PANTOPRAZOLE 40 MG 10ML VIAL IV SCH (09:00)
[2018-01-02] MEDS: POLYETHYLENE GLYCOL 3350 17 GM PACK PO SCH ×2 (09:00→17:00)
[2018-01-02] MEDS: DOCUSATE SODIUM 100 MG CAP PO SCH ×2 (09:00→17:00)
[2018-01-02] MEDS ORDERED: PEG (High)/E-LYTE SOLN 4,000 ML BTL PO NR (10:30)
[2018-01-02] MEDS ORDERED: BISACODYL 5 MG TAB EC PO NR (10:30)
[2018-01-02 19:05] LABS: HEMATOCRIT 30.3 % (34.2-44.1); HEMOGLOBIN 9.5 g/dL (12.0-16.0)
--- NOTE | 2018-01-02 19:44 | Progress Note ---
DATE: January 02, 2018 TIME OF SERVICE: 11:30 a.m. SUBJECTIVE: Overnight no acute events. REVIEW OF SYSTEMS: The patient denies chest pain, shortness of breath, or dizziness. No nausea, vomiting, diarrhea, fever, chills, sweats, claudication or headache reported. OBJECTIVE VITAL SIGNS: T 97.1, P 92, respirations 19, blood pressure 121/57, SPO2 on room air 97%. GENERAL APPEARANCE: This is as very tired-appearing, elderly female resting supine in bed. HEENT: Normocephalic, no sinus tenderness at maxilla. PERRLA. Oral mucosa moist, intact and pale. Discoloration to left cheek area, greenish, from prior fall per the patient. Dark, dry region over right eye with clean and dry bandage. CV: S1/S2 auscultated. No murmur noted. RESPIRATORY: Bilateral breath sounds, diminished in all browne with fair excursion. ABDOMEN: Soft, nontender, not distended, slightly protuberant. EXTREMITIES: Moves all 4 on commands. No distal edema or calf tenderness. NEUROLOGIC: Alert and oriented x3. No focal deficit noted on gross examination. SKIN: Dry. PSYCHIATRIC: Flat affect. MUSCULOSKELETAL: Left chest wall PPM palpated. LABORATORY DATA: This am's hemoglobin and hematocrit 8.5 and 27.4 respectively. MEDICATIONS: Reviewed. No change from prior day. ASSESSMENT AND PLAN: This is an 87-year-old woman with: 1. Acute gastrointestinal bleed. Continue IV Protonix and IV fluids. Pending endo exam in a.m. with GI consult. 2. Normocytic anemia. Continue monitoring hemoglobin and hematocrit. 3. Chronic kidney disease stage 3. IV fluids and follow up volumes in the a.m. 4. Paroxysmal atrial fibrillation. Anticoagulation on hold per GI recommendations, pending examination in a.m. 5. Urinary tract infection. Vancomycin x1. Urine culture collected. 6. Systolic congestive heart failure, chronic. Continue to monitor. 7. Prophylaxis: SCDs and proton pump inhibitor IV. 8. Hypothyroidism. Synthroid. 9. Insomnia. Ambien. 10. Positive blood cultures. Will repeat. As per prior, likely contaminated. DISPOSITION: Advancing diet per GI recommendations. Endoscopy pending in a.m. The patient n.p.o. after midnight. DICTATED BY: Dave Mckenzie NP Job#: [id number] GH
[2018-01-02] MEDS: PRAVASTATIN 20 MG TAB PO SCH (21:00)
[2018-01-02] MEDS ORDERED: METAXALONE 800 MG TAB PO PRN (21:00)
[2018-01-02] MEDS: ZOLPIDEM TARTRATE 5 MG TAB PO SCH (21:00)
[2018-01-02] MEDS: MELATONIN 5 MG TABLET PO SCH (21:00)
[2018-01-03 00:25] VITALS: BP 136/76
[2018-01-03 04:00] VITALS: BP 140/83
[2018-01-03] MEDS: SODIUM CHLORIDE 0.9% 1000ML 1,000 ML IV SCH (04:39)
[2018-01-03 05:02] LABS: BASOPHILS % 0.4 % (0.0-1.0); EOSINOPHILS # (AUTO) 0.5 (0.0-0.4); EOSINOPHILS % 8.8 % (0.0-6.0); HEMATOCRIT 25.4 % (34.2-44.1); HEMOGLOBIN 8.1 g/dL (12.0-16.0); LYMPHOCYTES # (AUTO) 1.8 (1.0-3.2); LYMPHOCYTES % 31.9 % (18.0-39.1); MEAN CORPUSCULAR HEMOGLOBIN 29.7 pg (28-32); MEAN CORPUSCULAR HGB CONC 31.9 g/dL (31-35); MONOCYTES # (AUTO) 0.8 (0.2-0.8); MONOCYTES % 13.7 % (4.4-11.3); NEUTROPHILS # (AUTO) 2.6 (2.1-6.9); NEUTROPHILS % 44.8 % (38.7-80.0); PLATELET COUNT 159 x10e3/uL (140-360); RED BLOOD COUNT 2.73 x10e6/uL (3.6-5.1); RED CELL DISTRIBUTION WIDTH 15.3 % (11.7-14.4)
[2018-01-03] MEDS: LEVOTHYROXINE SODIUM 100 MCG TAB PO SCH (05:10)
[2018-01-03 05:25] LABS: ALBUMIN 2.6 g/dL (3.5-5.0); ALBUMIN/GLOBULIN RATIO 1.2 (0.8-2.0); ANION GAP 14.4 mmol/L (8-16); CALCIUM 7.7 mg/dL (8.4-10.2); CREATININE, SERUM 0.99 mg/dL (0.57-1.11); POTASSIUM 3.4 mmol/L (3.5-5.1)
[2018-01-03 08:00] VITALS: BP 129/63
[2018-01-03] MEDS: PANTOPRAZOLE 40 MG 10ML VIAL IV SCH (09:00)
[2018-01-03] MEDS: ISOSORBIDE MONONITRATE 30 MG TAB CR PO SCH (09:00)
[2018-01-03] MEDS: POLYETHYLENE GLYCOL 3350 17 GM PACK PO SCH ×2 (09:00→15:54)
[2018-01-03] MEDS: DOCUSATE SODIUM 100 MG CAP PO SCH ×2 (09:00→15:54)
[2018-01-03] MEDS: CARVEDILOL 12.5 MG TAB PO SCH ×2 (09:30→15:54)
[2018-01-03] MEDS: POTASSIUM CHLORIDE 20 MEQ TAB CR PO SCH (09:30)
[2018-01-03] MEDS: FUROSEMIDE 40 MG TAB PO SCH (09:30)
[2018-01-03] MEDS: ACETAMINOPHEN 325 MG TAB PO PRN (09:30)
[2018-01-03] MEDS ORDERED: COLACE100 M1 PO (11:22)
[2018-01-03] MEDS ORDERED: LEVAQUIN500 MG PO (11:22)
[2018-01-03] MEDS ORDERED: LEVOFLOXACIN 500MG/D5W 100ML 100 ML IV ONE (11:30)
[2018-01-03 12:00] VITALS: BP 92/53
[2018-01-03] MEDS ORDERED: NON-FORMULARY MEDICATION (Prednisone 5 MG) PO SCH (16:00)
[2018-01-03 16:15] LABS: HEMATOCRIT 26.2 % (34.2-44.1); HEMOGLOBIN 8.5 g/dL (12.0-16.0)
[2018-01-03 16:56] VITALS: BP 92/52
[2018-01-03] MEDS ORDERED: LIDOCAINE HCL 2% LOCAL INJ 5 ML SDV VIAL INJ ONE (17:53)
[2018-01-03] MEDS ORDERED: HYDROCORTISONE SOD SUCCINATE 100 MG VIAL ONE (17:53)
[2018-01-03] MEDS ORDERED: PHENYLEPHRINE HCL 1% 10 MG/ML VIAL ONE (17:53)
[2018-01-03] MEDS ORDERED: EPHEDRINE SULFATE INJ 50 MG/10 ML SYR ONE (17:53)
[2018-01-03] MEDS ORDERED: PROPOFOL IV EMULSION 10 MG/ML 20 ML VIAL ONE (17:53)
[2018-01-03] MEDS: DESMOPRESSIN ACETATE 0.2 MG TABLET PO SCH ×2 (18:00→18:18)
[2018-01-03] MEDS: SUCRALFATE 1 GM TAB PO SCH ×2 (18:00→22:30)
[2018-01-03] MEDS: LEVOFLOXACIN 500MG/D5W 100ML 100 ML IV SCH (18:00)
[2018-01-03] MEDS: PREDNISONE 5 MG TAB PO SCH (18:47)
[2018-01-03 20:00] VITALS: BP 121/72
--- NOTE | 2018-01-03 21:19 | Discharge Summary ---
PRINCIPAL DIAGNOSES 1. Acute gastrointestinal bleed. 2. Normocytic anemia. 3. Chronic kidney disease stage 3. 4. Paroxysmal atrial fibrillation, anticoagulated. 5. Urinary tract infection. 6. Systolic congestive heart failure, chronic. SECONDARY DIAGNOSES 1. Recent fall. 2. Right scalp wound. 3. Right periorbital hematoma. 4. Chronic systolic congestive heart failure. 5. Acute kidney injury. 6. Chronic kidney disease stage 3. 7. Hypertension. 8. Hypothyroidism. 9. Hyperlipidemia. 10. 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 11. Urinary tract infection. 12. Postmenopausal bleed. 13. Hematuria with total hysterectomy. 14. Permanent pacemaker placement. 15. Cholecystectomy. 16. Hemorrhoidectomy. 17. Pituitary resection. 18. Right total knee replacement. CHIEF COMPLAINT: Bloody stool. HISTORY OF PRESENT ILLNESS: This is an 87-year-old woman with history of AFib, being anticoagulated with Xarelto, now developing bright red blood per rectum for 1 day prior to visiting the hospital. She denied any abdominal pain or have a history of GI bleed. The patient was admitted, where IV PPI was initiated, GI was consulted. Anticoagulation was held. Renal function and blood counts were monitored. On the , GI graciously consulted to provide recommendations. The patient remained stable. On the , cardiology was consulted at which time they agreed to hold Xarelto pending GI intervention. On Wednesday, the , the patient began bowel prep in anticipation of endoscopic procedures. On the , the patient underwent EGD and colonoscopy at which time she underwent hypotensive episode. Currently, the patient is alert and awake, oriented times 3, sitting up in bed, no longer lethargic. Vital signs, temperature 96.1, pulse 79, respirations 20, BP of 92/52, pulse ox 96% on room air. DISCHARGE MEDICATIONS: Will include new prescriptions for docusate sodium and Levaquin 500 mg p.o. daily. She will continue home meds which include Biotin 5000 mg p.o. nightly; Coreg 12.5 mg p.o. b.i.d.; desmopressin 0.1 mg p.o. t.i.d.; Pepcid 20 mg p.o. b.i.d. a.c. meals; furosemide 40 mg p.o. daily; isosorbide mononitrate 30 mg extended release tabs once daily, 2 tabs; Synthroid 50 mcg per day, 2 tabs by mouth; melatonin 3 mg nightly; multivitamins daily; Niaspan 500 mg tabs once daily; Zofran 8 mg before meals; p.r.n. Percocet; daily potassium chloride 20 mEq; pravastatin 40 mg at night; prednisone 5 mg daily; Xarelto 10 mg tablets; Ambien 10 mg tablets and diclofenac gel as needed for pain. FOLLOWUP: Patient will need followup with primary care provider, Dr. Chaney, in 1 to 2 weeks; follow up with urologist as needed, Dr. Humphrey, due to frequent E. coli infection and follow up with endovascular as needed. Additionally, she will need to follow up with GI physician, Dr. Hernandez, in 1 to 2 weeks or as directed. Patient will be provided empiric Levaquin for UTI. CONDITION ON DISCHARGE: Pending. Dictated by Dave Mckenzie NP. SCARLETT CONNER MD Job#: [id number] GE
[2018-01-03] MEDS: SIMVASTATIN 20 MG TAB PO SCH (22:30)
[2018-01-03] MEDS: ZOLPIDEM TARTRATE 5 MG TAB PO SCH (22:30)
[2018-01-03] MEDS: MELATONIN 5 MG TABLET PO SCH (22:30)
[2018-01-04] VITALS: BP 127/64
[2018-01-04] MEDS: LEVOTHYROXINE SODIUM 100 MCG TAB PO SCH (06:05)
[2018-01-04 08:00] VITALS: BP 119/50
--- NOTE | 2018-01-04 08:48 | Progress Note ---
DATE: January 04, 2018 TIME: 7:56 a.m. OVERNIGHT: Patient remained in hospital due to her son requesting skilled facility placement. REVIEW OF SYSTEMS: Denies any dizziness, chest pain. PHYSICAL EXAMINATION: VITAL SIGNS: Reviewed. GENERAL APPEARANCE: Tired-appearing woman resting in bed. HEENT: Anicteric. CARDIOVASCULAR: Normal S1 and S2. LUNGS: Moderate breath sounds. ABDOMEN: Soft, nontender, nondistended. EXTREMITIES: No edema. SKIN: Dry. PSYCHIATRIC: Flat affect. LABS: Reviewed. MEDICATIONS: Reviewed. ASSESSMENT: This is an 87-year-old woman. 1. Acute gastrointestinal bleed. 2. Normocytic anemia, which is mild to moderate and stable. 3. Chronic kidney disease, stage 3. 4. Paroxysmal atrial fibrillation. 5. Urinary tract infection. 6. Chronic systolic congestive heart failure. 7. Recent fall. 8. Physical deconditioning. 9. Patient has coagulase-negative staphylococcus in 1 of 2 blood cultures, likely contaminant. PLAN: 1. Continue sucralfate and PPI. 2. Continue blood pressure control. 3. Continue physical therapy. 4. Continue other medication regimen. 5. Discharge planning, discharge to skilled facility once approved. Job#: [id number]
[2018-01-04] MEDS: ISOSORBIDE MONONITRATE 30 MG TAB CR PO SCH (09:00)
[2018-01-04] MEDS: POLYETHYLENE GLYCOL 3350 17 GM PACK PO SCH ×2 (09:00→16:46)
[2018-01-04] MEDS: PANTOPRAZOLE 40 MG 10ML VIAL IV SCH (09:50)
[2018-01-04] MEDS: POTASSIUM CHLORIDE 20 MEQ TAB CR PO SCH (09:50)
[2018-01-04] MEDS: CARVEDILOL 12.5 MG TAB PO SCH ×2 (09:50→16:46)
[2018-01-04] MEDS: DESMOPRESSIN ACETATE 0.2 MG TABLET PO SCH (09:50)
[2018-01-04] MEDS: DOCUSATE SODIUM 100 MG CAP PO SCH ×2 (09:50→16:46)
[2018-01-04] MEDS: FUROSEMIDE 40 MG TAB PO SCH (09:50)
[2018-01-04] MEDS: SUCRALFATE 1 GM TAB PO SCH ×4 (09:50→21:41)
[2018-01-04] MEDS: PREDNISONE 5 MG TAB PO SCH (09:50)
[2018-01-04 12:00] VITALS: BP 99/62
[2018-01-04 14:17] VITALS: BP 99/62
[2018-01-04 16:00] VITALS: BP 113/66
[2018-01-04] MEDS: LEVOFLOXACIN 500MG/D5W 100ML 100 ML IV SCH (16:46)
[2018-01-04] MEDS: ZOLPIDEM TARTRATE 5 MG TAB PO SCH (21:41)
[2018-01-04] MEDS: MELATONIN 5 MG TABLET PO SCH (21:41)
[2018-01-04] MEDS: SIMVASTATIN 20 MG TAB PO SCH (21:41)
[2018-01-05] MEDS: LEVOTHYROXINE SODIUM 100 MCG TAB PO SCH (05:43)
[2018-01-05 07:16] LABS: HEMATOCRIT 24.3 % (34.2-44.1); HEMOGLOBIN 8.1 g/dL (12.0-16.0)
[2018-01-05] MEDS: SUCRALFATE 1 GM TAB PO SCH ×3 (07:30→16:30)
[2018-01-05 07:32] LABS: ANION GAP 14.4 mmol/L (8-16); CREATININE, SERUM 1.16 mg/dL (0.57-1.11); POTASSIUM 3.4 mmol/L (3.5-5.1)
[2018-01-05 08:00] VITALS: BP 120/73
[2018-01-05] MEDS: POLYETHYLENE GLYCOL 3350 17 GM PACK PO SCH ×2 (09:00→17:00)
[2018-01-05] MEDS ORDERED: DESMOPRESSIN ACETATE 0.2 MG TABLET PO SCH (09:00)
[2018-01-05] MEDS: PREDNISONE 5 MG TAB PO SCH ×2 (09:00→09:06)
[2018-01-05] MEDS: DOCUSATE SODIUM 100 MG CAP PO SCH ×2 (09:00→17:00)
[2018-01-05] MEDS ORDERED: RIVAROXABAN 15 MG TABLET PO SCH (09:00)
[2018-01-05] MEDS: CARVEDILOL 12.5 MG TAB PO SCH ×2 (09:00→17:00)
[2018-01-05] MEDS: PANTOPRAZOLE 40 MG 10ML VIAL IV SCH (09:00)
[2018-01-05] MEDS: FUROSEMIDE 40 MG TAB PO SCH (09:00)
[2018-01-05] MEDS: ISOSORBIDE MONONITRATE 30 MG TAB CR PO SCH (09:00)
[2018-01-05] MEDS: POTASSIUM CHLORIDE 20 MEQ TAB CR PO SCH (09:00)
[2018-01-05] MEDS: ALBUTEROL/IPRATROPIUM 3 ML NEB NEB SCH ×2 (11:00→14:40)
[2018-01-05 11:45] VITALS: BP 102/64
[2018-01-05 16:00] VITALS: BP 100/59
[2018-01-05] MEDS: LEVOFLOXACIN 500MG/D5W 100ML 100 ML IV SCH (16:30)
[2018-01-05] MEDS ORDERED: COLACE100 MG PO (18:53)
[2018-01-05] MEDS ORDERED: LEVAQUIN500 MG PO (18:55)
== END 2018-01-05 18:53 | DRG 543 ==
LOC: ER 10:04 → ERHOLD 20:51 → MED/SURG2 23:48
PROVIDERS: ADMIT Internal Medicine; ATTEND Internal Medicine
PROC: 0DBK8ZX Excision of Ascending Colon, Via Natural or Artificial Opening Endoscopic, Diagnostic (ICD-10-PCS; principal; 2018-01-03 13:32)
PROC: 0DJ08ZZ Inspection of Upper Intestinal Tract, Via Natural or Artificial Opening Endoscopic (ICD-10-PCS; 2018-01-03 13:32)
DX: C49.A2 Gastrointestinal stromal tumor of stomach (principal); K92.1 Melena; N39.0 Urinary tract infection, site not specified; I50.22 Chronic systolic (congestive) heart failure; I13.0 Hypertensive heart and chronic kidney disease with heart failure and stage 1 through stage 4 chronic kidney disease, or unspecified chronic kidney disease; D62 Acute posthemorrhagic anemia; N17.9 Acute kidney failure, unspecified; D64.9 Anemia, unspecified; N18.3 Chronic kidney disease, stage 3 (moderate); I48.0 Paroxysmal atrial fibrillation; Z79.01 Long term (current) use of anticoagulants; I95.9 Hypotension, unspecified; E03.9 Hypothyroidism, unspecified; E78.5 Hyperlipidemia, unspecified; Z95.0 Presence of cardiac pacemaker; N28.9 Disorder of kidney and ureter, unspecified; Z83.3 Family history of diabetes mellitus; Z82.49 Family history of ischemic heart disease and other diseases of the circulatory system; K63.5 Polyp of colon; K57.30 Diverticulosis of large intestine without perforation or abscess without bleeding; K64.4 Residual hemorrhoidal skin tags; K29.70 Gastritis, unspecified, without bleeding; K44.9 Diaphragmatic hernia without obstruction or gangrene; Z91.81 History of falling; S05.11XA Contusion of eyeball and orbital tissues, right eye, initial encounter; Z96.651 Presence of right artificial knee joint; G47.00 Insomnia, unspecified
CPT/HCPCS: 36415; 43235; 45385; 51700; 70450; 71045; 72125; 74176; 80048; 80053; 81001; 83605; 83735; 84100; 84484; 85014; 85018; 85025; 85610; 85730; 86850; 86900; 87040; 87071; 87205; 88305; 93005; 94640; 96361; 97139; 99285; J0696; J1720; J1956; J2001; J2370; J3370; J7030; J7512

== ENCOUNTER 2018-07-25 11:41 | Inpatient (IN) | payer MEDICARE ==
[~2018-07-25] VITALS: Ht 172.7 cm; Wt 81.7 kg
[2018-07-25] VITALS (7 sets, daily range): BP systolic 125–189; BP diastolic 62–85
[~2018-07-25 11:41] MED LIST changes: +COLACE100 M1 PO; +COLACE100 MG PO; +LEVAQUIN500 MG PO
[2018-07-25 13:21] LABS: BASOPHILS # (AUTO) 0.1 (0.0-0.1); EOSINOPHILS # (AUTO) 0.9 (0.0-0.4); EOSINOPHILS % 11.5 % (0.0-6.0); HEMATOCRIT 37.6 % (34.2-44.1); HEMOGLOBIN 12.1 g/dL (12.0-16.0); LYMPHOCYTES # (AUTO) 2.2 (1.0-3.2); LYMPHOCYTES % 27.4 % (18.0-39.1); MEAN CORPUSCULAR HEMOGLOBIN 30.9 pg (28-32); MEAN CORPUSCULAR HGB CONC 32.2 g/dL (31-35); MEAN CORPUSCULAR VOLUME 96.2 fL (81-99); MONOCYTES # (AUTO) 0.6 (0.2-0.8); MONOCYTES % 7.6 % (4.4-11.3); NEUTROPHILS # (AUTO) 4.2 (2.1-6.9); PLATELET COUNT 166 x10e3/uL (140-360); RED BLOOD COUNT 3.91 x10e6/uL (3.6-5.1)
--- NOTE | 2018-07-25 13:34 | NUR ---
recv pt as direct admit, family at bedside. pt MENOMINEE, per family she has shown AMS, currently alert and oriented to self, place, time. aware of why she is admitted. will continue to monitor.
--- NOTE | 2018-07-25 13:39 | NUR ---
orders to continue home meds, pt to provide updated list later today
[2018-07-25 13:46] LABS: ALBUMIN 3.3 g/dL (3.5-5.0); ALBUMIN/GLOBULIN RATIO 1.5 (0.8-2.0); ANION GAP 15.8 mmol/L (8-16); CALCIUM 8.6 mg/dL (8.4-10.2); CREATININE, SERUM 1.61 mg/dL (0.57-1.11); POTASSIUM 4.8 mmol/L (3.5-5.1)
[2018-07-25 13:53] LABS: CREATINE KINASE MB 2.2 ng/mL (0-5.0)
--- NOTE | 2018-07-25 15:03 | Diagnostic Imaging Report ---
EXAMINATION: PA and lateral views of the chest. COMPARISON: Two-view chest radiograph 05/10/2017 CLINICAL HISTORY: CHF DISCUSSION: Left subclavian approach implantable cardiac device body and leads are unchanged in position relative to 05/10/2017. The lungs are relatively well inflated. Minimal bibasilar opacities may reflect fibrotic changes or subsegmental atelectasis. Stable cardiomediastinal contour with tortuosity of the thoracic aorta. No overt pulmonary edema. No acute osseous abnormality. IMPRESSION: No acute cardiopulmonary abnormality. Subsegmental atelectasis versus age-related fibrotic changes in the lower lung zones. Borderline cardiomegaly without vascular decompensation. Signed by: Dr. Nigel Lee M.D. on 07/25/2018 3:00 PM
[2018-07-25] MEDS ORDERED: DESMOPRESSIN A0.1 MG (15:34)
--- NOTE | 2018-07-25 16:57 | NUR ---
DR XIAO WAS ON UNIT AND AWARE OF ALL LABS/DX TEST RESULTS
[2018-07-25] MEDS: FUROSEMIDE INJ 10 MG/ML 4 ML VIAL IV SCH (17:44)
[2018-07-25] MEDS ORDERED: NON-FORMULARY MEDICATION (Oxycodone Hcl/Acetaminophen (Percocet 10-325 Mg Tablet) 1 TAB) PO PRN (18:15)
[2018-07-25] MEDS ORDERED: DICLOFENAC 1% TOP PRN (18:15)
--- NOTE | 2018-07-25 19:26 | NUR ---
report received and walking rounds complete
[2018-07-25] MEDS ORDERED: OXYCODONE HCL IR 5 MG TAB PO PRN (19:30)
[2018-07-25] MEDS ORDERED: MELATONIN 5 MG TABLET PO PRN (19:45)
[2018-07-25] MEDS ORDERED: DICLOFENAC SOD 1% GEL 100 GM TUBE TP PRN (20:30)
[2018-07-25] MEDS ORDERED: NON-FORMULARY MEDICATION (Mu-Vits-Min Th/Lycopene/Lutein (Centrum Silver Tablet) 1 TAB) PO SCH (21:00)
[2018-07-25] MEDS ORDERED: NON-FORMULARY MEDICATION (Pravastatin Sodium 40 MG) PO SCH (21:00)
[2018-07-25] MEDS: BIOTIN 5000 MG PO SCH (21:00)
[2018-07-25] MEDS ORDERED: OCUVITE PRESERVISION TABLET PO SCH (21:00)
[2018-07-25] MEDS ORDERED: NON-FORMULARY MEDICATION (Zolpidem Tartrate 10 MG) PO SCH (21:00)
[2018-07-25] MEDS ORDERED: MELATONIN 3 MG TAB PO SCH (21:00)
[2018-07-25] MEDS: MELATONIN 5 MG TABLET PO SCH (21:35)
[2018-07-25] MEDS: MULTIVITAMINS/MINERALS TAB PO SCH (21:35)
[2018-07-25] MEDS: ZOLPIDEM TARTRATE 10 MG TAB PO SCH (21:35)
[2018-07-25] MEDS: PRAVASTATIN 20 MG TAB PO SCH (21:35)
[2018-07-26] VITALS (7 sets, daily range): BP systolic 125–154; BP diastolic 64–79
[2018-07-26] MEDS: LEVOTHYROXINE SODIUM 100 MCG TAB PO SCH (06:16)
[2018-07-26] MEDS ORDERED: LEVOTHYROXINE SODIUM 50 MCG TAB PO SCH (06:30)
--- NOTE | 2018-07-26 06:42 | NUR ---
PRIMARY CARE PHYSICIAN: Dr. Chaney. CHIEF COMPLAINT: SOB HISTORY OF PRESENT ILLNESS: This is an 87-year-old woman with a history of atrial fibrillation, on anticoagulation with Xarelto, now with worsening SOB and presyncope? Pt denies cp. Echo and leg U/S completed; PAST MEDICAL HISTORY: Atrial fibrillation, fall, right scalp hematoma, right periorbital hematoma due to fall, chronic systolic congestive heart failure, acute kidney injury, chronic kidney disease stage III, hypertension, hypothyroidism, hyperlipidemia, pituitary tumor status post resection in , urinary tract infection, post menopausal bleed and hematuria. PAST SURGICAL HISTORY: Permanent pacemaker placement, cholecystectomy, hemorrhoidectomy, resection of pituitary tumor in which was benign, right total knee replacement, Systolic CHF, PAF, UTI, Acute GIB ALLERGIES: PER ELECTRONIC MEDICAL RECORDS. FAMILY HISTORY/SOCIAL HISTORY: Patient is . She has 2 children. No alcohol, illicit, or cigarettes. MEDICATIONS: Per electronic medical records. REVIEW OF SYSTEMS: no f/c/s/N/V/D/EUGENE/vision changes/leg pain/back pain/dizziness. PHYSICAL EXAMINATION VITAL SIGNS: reviewed. GENERAL: A tired-appearing woman resting in bed. HEENT: Anicteric. Pupils reactive to light. No oral lesions. CARDIOVASCULAR: Normal S1 and S2. LUNGS: Moderately reduced BS ABDOMEN: Soft, nontender and nondistended. EXTREMITIES: No edema or calf tenderness. NEUROLOGICALLY: She is alert, oriented and appropriate. Moving all extremities. SKIN: Dry. PSYCHIATRIC: Flat affect. MUSCULOSKELETAL: Left-sided chest palpable pacemaker. LABS: Reviewed. ASSESSMENT: This is an 87-year-old woman 1. AECHF- systolic lVEF 30% 2.Hyponatremia 3.KARINA in CKD3 4.PAF 5.HTN 6.Physical deconditioning 7.Hypothyroidism PLAN 1.diuresis 2.control BP 3.f/u Na 4.f/u renal fn 5.HR control 6.Levothyroxine 7.PT consult 8.f/u cardio recs 9.strict I/O 10.U/S no leg dvt. Pratik Short MD, PhD.
--- NOTE | 2018-07-26 07:24 | NUR ---
report given and walking rounds complete. pt resting and in no apparent distress.
[2018-07-26] MEDS ORDERED: NON-FORMULARY MEDICATION (Ondansetron Hcl (Zofran) 8 MG) PO SCH (07:30)
[2018-07-26] MEDS: ONDANSETRON HCL 4 MG ORAL DISINTEGRATING TAB PO SCH ×3 (07:57→17:18)
[2018-07-26] MEDS ORDERED: NON-FORMULARY MEDICATION (Prednisone 5 MG) PO SCH (09:00)
[2018-07-26] MEDS ORDERED: DOCUSATE SODIUM 100 MG CAP PO SCH (09:00)
[2018-07-26] MEDS ORDERED: RIVAROXABAN 10 MG TABLET PO SCH (09:00)
[2018-07-26] MEDS ORDERED: CARVEDILOL 3.125 MG TAB PO SCH (09:00)
[2018-07-26] MEDS ORDERED: FUROSEMIDE 40 MG TAB PO SCH (09:00)
[2018-07-26] MEDS ORDERED: NIACIN 500 MG PO SCH (09:00)
[2018-07-26] MEDS ORDERED: RIVAROXABAN 15 MG TABLET PO SCH (09:00)
[2018-07-26] MEDS: FUROSEMIDE INJ 10 MG/ML 4 ML VIAL IV SCH ×2 (09:08→21:44)
[2018-07-26] MEDS: ISOSORBIDE MONONITRATE 30 MG TAB CR PO SCH (09:09)
[2018-07-26] MEDS: POTASSIUM CHLORIDE 20 MEQ TAB CR PO SCH (09:09)
[2018-07-26] MEDS: DOCUSATE SODIUM 100 MG CAP PO SCH ×2 (09:09→17:18)
[2018-07-26] MEDS: CARVEDILOL 12.5 MG TAB PO SCH ×2 (09:09→17:18)
[2018-07-26] MEDS: DESMOPRESSIN ACETATE 0.2 MG TABLET PO SCH (09:09)
[2018-07-26] MEDS: NIACIN 500 MG TABSR PO SCH (09:10)
[2018-07-26] MEDS: PREDNISONE 5 MG TAB PO SCH (09:10)
[2018-07-26 11:28] LABS: ANION GAP 15.8 mmol/L (8-16); CALCIUM 8.6 mg/dL (8.4-10.2); CREATININE, SERUM 1.8 mg/dL (0.57-1.11); POTASSIUM 3.8 mmol/L (3.5-5.1)
--- NOTE | 2018-07-26 13:10 | NUR ---
SOCIAL WORK INITIAL ASSESSMENT Diversity Manager to bedside to discuss plan of care with patient/family. CM/SW role and care transitions discussed. Anticipated discharge plan discussed along with duration of care. CM/SW discussed patients right to make decisions in care. CM/SW work hours given. Patient lives: IN OWN HOUSE WITH OF 65 YEARS Admit/Transfer: VIA ED FROM PCP POA/Emergency contact: TAMIKO [phone] OR [phone] Current/Previous Home Health: NONE PCP/Follow-up Care: [facility] Current/Previous DME: [facility] Other Services: NONE Employment Status: RETIRED Areas of Concerns: NONE Referral Needs: NONE Education Needs: NONE IMM/WALTON given and signed (if applicable): WALTON (IMM GIVEN UPON ADMISSION) Goal for discharge: RETURN HOME IF CAN, IF SHE IS UNABLE TO CARE FOR SELF, SHE HAS BEEN TO [facility] BEFORE AND IF NEEDED WILL RETURN TOMORROW CM/SW left business card at the bedside with contact information. Name and number was also written on the patients whiteboard. Patient verbalized understanding of discussion. CM will follow-up with ongoing discharge and transition of care needs.
--- NOTE | 2018-07-26 15:12 | Consultation ---
DATE OF CONSULTATION: 07/26/2018 REASON FOR CONSULTATION: Congestive heart failure. HISTORY OF PRESENT ILLNESS: This is an 88-year-old woman with history of coronary artery disease, chronic systolic heart failure status post FINANCIAL WRITER/ICD, atrial fibrillation, chronic kidney disease stage 3, hypertension, and hyperlipidemia, who presents with complaints of worsening shortness of breath and weakness. The patient reports she has had progressively worsening shortness of breath for the last two weeks with a total weight gain of approximately 12 pounds. In the last week, she has noted increasing weakness such that she can no longer walk from her bedroom down the [place]. Family also indicates the patient has had dyspnea on exertion; however, she denied any chest pain, palpitations, orthopnea, or PND. The patient was seen in the office yesterday with continued deterioration despite increased to 120 mg of Lasix. The patient was subsequently sent to the patient's [facility] for admission. REVIEW OF SYSTEMS: Negative except as per HPI. PAST MEDICAL HISTORY: 1. Coronary artery disease. 2. Chronic systolic heart failure status post FINANCIAL WRITER/ICD. 3. Atrial fibrillation. 4. Chronic kidney disease. 5. Hypertension. 6. Hyperlipidemia. 7. Hypothyroidism. 8. Pituitary tumor, status post resection. PAST SURGICAL HISTORY: 1. Cholecystectomy. 2. Hemorrhoidectomy. 3. Neck surgery x2. 4. Back surgery. 5. Bilateral knee replacement. 6. Pituitary tumor resection. ALLERGIES: PLEASE SEE EMR. MEDICATIONS: Please see medication list. SOCIAL HISTORY: No tobacco, alcohol, or illicit drugs. FAMILY HISTORY: Noncontributory to current illness. PHYSICAL EXAMINATION: VITAL SIGNS: Temperature 96.1 degree, pulse 93, respiratory rate 18, blood pressure 140/75, and oxygen saturation 96% on room air. GENERAL: Elderly woman in no acute distress. Awake and alert. HEENT: Normocephalic, atraumatic. Pupils equal. No scleral icterus. NECK: Supple. No thyromegaly or cervical lymphadenopathy. No carotid bruits. LUNGS: Clear to auscultation bilaterally. No wheezes or crackles. CARDIOVASCULAR: Normal rate. Regular rhythm. 2/6 systolic murmur. Normal S1 and S2. ABDOMEN: Soft, nontender. EXTREMITIES: No edema. NEUROLOGIC: Nonfocal exam. LABORATORY DATA: Sodium 134, potassium 3.8, chloride 94, CO2 28, BUN 22, creatinine 1.8. BNP 1316. Chest x-ray, borderline cardiomegaly without vascular decompensation. Subsegmental atelectasis versus age-related fibrotic changes in the lower lung zone. Telemetry, V-paced. IMPRESSION: 1. Fsmiz-st-jnktnqe systolic heart failure, status post FINANCIAL WRITER/ICD. 2. Hyponatremia. 3. Ecrpj-ta-ikdrfyf kidney disease. 4. Coronary artery disease. 5. Paroxysmal atrial fibrillation. 6. Hyperlipidemia. 7. Hypertension. 8. Hypothyroidism. RECOMMENDATIONS: Continue diuresis. Monitor creatinine closely. Continue home cardiac medications. Hyponatremia is improving with diuresis, we will continue. Monitor the patient closely on telemetry. Recommend PT evaluation. Thank you for this consult. We will continue to follow. Imelda Vela MD ABS/MODL /[id number]
--- NOTE | 2018-07-26 18:55 | NUR ---
Report given to oncoming shift. Call zurita within reach.
[2018-07-26] MEDS: PRAVASTATIN 20 MG TAB PO SCH (21:00)
[2018-07-26] MEDS: MELATONIN 5 MG TABLET PO SCH (21:00)
[2018-07-26] MEDS: MULTIVITAMINS/MINERALS TAB PO SCH (21:00)
[2018-07-26] MEDS: ZOLPIDEM TARTRATE 10 MG TAB PO SCH (21:00)
[2018-07-26] MEDS: BIOTIN 5000 MG PO SCH (21:00)
[2018-07-27] VITALS (7 sets, daily range): BP systolic 101–137; BP diastolic 53–64
--- NOTE | 2018-07-27 06:14 | NUR ---
IM- Progress Note O/N: no events REVIEW OF SYSTEMS: no f/c/s/N/V/D/EUGENE/vision changes/leg pain/back pain/dizziness. PHYSICAL EXAMINATION VITAL SIGNS: reviewed. GENERAL: A tired-appearing woman resting in bed. HEENT: Anicteric. Pupils reactive to light. No oral lesions. CARDIOVASCULAR: Normal S1 and S2. LUNGS: Moderately reduced BS ABDOMEN: Soft, nontender and nondistended. EXTREMITIES: No edema or calf tenderness. NEUROLOGICALLY: She is alert, oriented and appropriate. Moving all extremities. SKIN: Dry. PSYCHIATRIC: Flat affect. MUSCULOSKELETAL: Left-sided chest palpable pacemaker. LABS: Reviewed. ASSESSMENT: This is an 87-year-old woman 1. AECHF- systolic lVEF 30% 2.Hyponatremia 3.KARINA in CKD3 4.PAF 5.HTN 6.Physical deconditioning 7.Hypothyroidism PLAN 1.diuresis 2.control BP 3.f/u Na 4.f/u renal fn 5.HR control 6.Levothyroxine 7.PT consult 8.f/u cardio recs 9.strict I/O 10.U/S no leg dvt. 07/27 I/O not well documented? strict I/O; Renal U/S; nephr consult on high dose lasix. Pratik Short MD, PhD.
[2018-07-27] MEDS: LEVOTHYROXINE SODIUM 100 MCG TAB PO SCH (06:32)
[2018-07-27] MEDS: ONDANSETRON HCL 4 MG ORAL DISINTEGRATING TAB PO SCH ×3 (07:39→16:41)
[2018-07-27] MEDS: DESMOPRESSIN ACETATE 0.2 MG TABLET PO SCH (09:02)
[2018-07-27] MEDS: FUROSEMIDE INJ 10 MG/ML 4 ML VIAL IV SCH (09:02)
[2018-07-27] MEDS: CARVEDILOL 12.5 MG TAB PO SCH ×2 (09:02→16:42)
[2018-07-27] MEDS: ISOSORBIDE MONONITRATE 30 MG TAB CR PO SCH (09:02)
[2018-07-27] MEDS: DOCUSATE SODIUM 100 MG CAP PO SCH ×2 (09:02→16:41)
[2018-07-27] MEDS: POTASSIUM CHLORIDE 20 MEQ TAB CR PO SCH (09:03)
[2018-07-27] MEDS: NIACIN 500 MG TABSR PO SCH (09:03)
[2018-07-27] MEDS: PREDNISONE 5 MG TAB PO SCH (09:03)
[2018-07-27 12:23] LABS: ANION GAP 17.4 mmol/L (8-16); CALCIUM 8.4 mg/dL (8.4-10.2); CREATININE, SERUM 1.95 mg/dL (0.57-1.11); POTASSIUM 3.4 mmol/L (3.5-5.1)
--- NOTE | 2018-07-27 14:43 | Progress Note ---
DATE: 07/27/2018 Cardiology Progress Note SUBJECTIVE: The patient denies chest pain or shortness of breath. Her who is at bedside indicates the patient was confused yesterday. However, this morning, she is alert and oriented to self. She is able to state she is in the hospital, although she was not sure which hospital. She did, however, indicate the year was 2017. OBJECTIVE: VITAL SIGNS: Temperature 98.9 degrees, pulse 76, respiratory rate 19, blood pressure 116/56, oxygen saturation 94% on room air. GENERAL: Elderly woman, no acute distress, awake and alert. LUNGS: Clear to auscultation bilaterally. No wheezes or crackles. CARDIOVASCULAR: Normal rate. Regular rhythm. 2/6 systolic murmur. Normal S1 and S2. ABDOMEN: Soft and nontender. EXTREMITIES: No edema. CARDIAC MEDICATIONS: Carvedilol 12.5 mg p.o. b.i.d., isosorbide mononitrate 60 mg p.o. daily, furosemide 80 mg IV q.12 hours, levothyroxine 100 mcg p.o. daily. LABORATORY DATA: Pending. Telemetry, V-paced. IMPRESSION: 1. Ekkxi-tg-sicuwid systolic heart failure, status post cardiac resynchronization therapy/implantable cardioverter-defibrillator. 2. Jehhr-jm-dkbnbux kidney disease. 3. Hyponatremia. 4. Paroxysmal atrial fibrillation. 5. Hypertension. 6. Hyperlipidemia. 7. Hypothyroidism. RECOMMENDATIONS: Continue diuretics. Monitor creatinine closely. Continue current cardiac medications. Monitor the patient on telemetry. Physical therapy evaluation. Thank you for this consult. We will continue to follow. Imelda Vela MD ABS/MODL /[id number]
--- NOTE | 2018-07-27 16:57 | Diagnostic Imaging Report ---
Renal ultrasound dated 07/27/2018 at 4:14 PM History: Renal insufficiency. Discussion: Transverse and longitudinal images of the kidneys were obtained. There is no evidence of hydronephrosis, mass or renal calculus. The right kidney measures 11.7 x 5.1 x 5.5 cm and the left kidney measures 6.2 x 2.8 x 3.4 cm. Maximal cortical thickness on the right measures 1.7 cm and on the left measures 0.7 cm. Increased echogenicity involving the left kidney. The urinary bladder is not full. There is no evidence of free fluid. IMPRESSION: Small left kidney with increased echogenicity. Signed by: Dr. Man Hester DO on 07/27/2018 4:53 PM
[2018-07-27] MEDS ORDERED: POTASSIUM CHLORIDE 20MEQ/100ML 200 ML IV ONE (18:00)
[2018-07-27] MEDS: SODIUM CHLORIDE 0.9% 1000ML 1,000 ML IV SCH (18:18)
[2018-07-27] MEDS: BIOTIN 5000 MG PO SCH (21:00)
[2018-07-27] MEDS: PRAVASTATIN 20 MG TAB PO SCH (21:09)
[2018-07-27] MEDS: MELATONIN 5 MG TABLET PO SCH (21:09)
[2018-07-27] MEDS: MULTIVITAMINS/MINERALS TAB PO SCH (21:09)
[2018-07-28] VITALS (8 sets, daily range): BP systolic 94–153; BP diastolic 58–72
--- NOTE | 2018-07-28 04:32 | Consultation ---
DATE OF CONSULTATION: 07/27/2018 HISTORY OF PRESENT ILLNESS: Ms. Heather Amin is an 88-year-old female. History is partly from patient, partly from her , and partly from chart. She has a medical history of diabetes insipidus and hypoadrenal state, has been on desmopressin as well as prednisone 5 mg daily. She came in with congestive heart failure, was aggressively diuresed. Renal consult for management of underlying acute kidney injury. She is currently awake and alert. Apparently her mental status was that she was a kind of confused yesterday, but she is better today. Her labs show sodium of 134, potassium 3.4, chloride 88, bicarbonate 32 with a BUN 23, and creatinine 1.95. Hemoglobin 12.1. She is awake, alert, and following commands, in no apparent distress. ALLERGIES: LATEX AND NITROGLYCERIN. MEDICATIONS: She is on biotin 5 mg p.o. at bedtime, she is on Ambien 10 mg at bedtime, which I am going to stop, she is on prednisone 5 mg daily, pravastatin, she is on K-Dur 20 mEq p.o. daily, she is on Niacin 500 mg daily, multivitamins, Melatonin 10 mg at bedtime, levothyroxine 100 mcg daily, isosorbide 60 mg daily, she is on Lasix 80 mg IV q.12, which I am going to hold right now, she is on Colace, diclofenac, carvedilol 12.5 mg p.o. b.i.d. and she is on desmopressin acetate 0.1 mg daily. SOCIAL HISTORY: Does not smoke or drink. PAST MEDICAL HISTORY: As above, plus history of hypertension, congestive heart failure, prior cholecystectomy. She has had back surgery and neck surgery. She has had bilateral knee displacement. She has had 2 attempts of pituitary resections. Has hypothyroidism, hypoadrenal state apparently. History of systolic heart failure. One of her presenting symptoms was increasing abdominal girth and lower extremity swelling, all of that have resolved remarkably with the diuretics. FAMILY HISTORY: Significant for hypertension. PHYSICAL EXAMINATION: GENERAL: Awake, alert, following commands, in no apparent distress. VITAL SIGNS: Blood pressure 101/57, pulse rate 80, afebrile, and respiratory rate 17. HEAD AND NECK: Cornea clear. Oral mucosa moist. Neck veins not distended. LUNGS: Occasional rhonchi, end expiratory scattered, but no rales. HEART: S1 and S2, audible. No murmurs. I could not appreciate any murmurs. EXTREMITIES: Lower extremity, no edema. Workup included right kidney 11.7 and left kidney 6.2 cm with increased echogenicity. IMPRESSION AND PLAN: Hypopituitarism, hyponatremia, hypokalemia, and acute kidney injury. Plan on replacing potassium IV. We will start IV normal saline, hold desmopressin. I suspect she is clinically dry. Further changes I mention about, we will send a urine sodium level and urine creatinine, and calculate fractional excretion of sodium. 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 No abdominal bruits noted. Discussed with , nurse, and daughter. MD JUANPABLO Gallo/AG /[id number]
[2018-07-28 05:33] LABS: BASOPHILS # (AUTO) 0.1 (0.0-0.1); BASOPHILS % 0.6 % (0.0-1.0); EOSINOPHILS # (AUTO) 0.9 (0.0-0.4); EOSINOPHILS % 10.6 % (0.0-6.0); HEMATOCRIT 37.4 % (34.2-44.1); HEMOGLOBIN 11.8 g/dL (12.0-16.0); LYMPHOCYTES % 23.8 % (18.0-39.1); MEAN CORPUSCULAR HEMOGLOBIN 30.1 pg (28-32); MEAN CORPUSCULAR HGB CONC 31.6 g/dL (31-35); MEAN CORPUSCULAR VOLUME 95.4 fL (81-99); MONOCYTES # (AUTO) 0.6 (0.2-0.8); MONOCYTES % 7.4 % (4.4-11.3); NEUTROPHILS # (AUTO) 4.7 (2.1-6.9); NEUTROPHILS % 57.1 % (38.7-80.0); PLATELET COUNT 214 x10e3/uL (140-360); RED BLOOD COUNT 3.92 x10e6/uL (3.6-5.1); RED CELL DISTRIBUTION WIDTH 16.6 % (11.7-14.4)
[2018-07-28] MEDS: LEVOTHYROXINE SODIUM 100 MCG TAB PO SCH (05:46)
[2018-07-28 06:00] LABS: CALCIUM 8.4 mg/dL (8.4-10.2)
--- NOTE | 2018-07-28 06:21 | NUR ---
IM- Progress Note O/N: no events REVIEW OF SYSTEMS: no f/c/s/N/V/D/EUGENE/vision changes/leg pain/back pain/dizziness. PHYSICAL EXAMINATION VITAL SIGNS: reviewed. GENERAL: A tired-appearing woman resting in bed. HEENT: Anicteric. Pupils reactive to light. No oral lesions. CARDIOVASCULAR: Normal S1 and S2. LUNGS: Moderately reduced BS ABDOMEN: Soft, nontender and nondistended. EXTREMITIES: No edema or calf tenderness. NEUROLOGICALLY: She is alert, oriented and appropriate. Moving all extremities. SKIN: Dry. PSYCHIATRIC: Flat affect. MUSCULOSKELETAL: Left-sided chest palpable pacemaker. LABS: Reviewed. ASSESSMENT: This is an 87-year-old woman 1. AECHF- systolic lVEF 30% 2.Hyponatremia 3.KARINA in CKD3 4.PAF 5.HTN 6.Physical deconditioning 7.Hypothyroidism PLAN 1.diuresis 2.control BP 3.f/u Na 4.f/u renal fn 5.HR control 6.Levothyroxine 7.PT consult 8.f/u cardio recs 9.strict I/O 10.U/S no leg dvt. 07/27 I/O not well documented? strict I/O; Renal U/S; nephr consult on high dose lasix. 07/28 lasix on hold Pratik Short MD, PhD.
[2018-07-28 07:03] LABS: CREATININE, SERUM 1.87 mg/dL (0.57-1.11)
--- NOTE | 2018-07-28 07:25 | NUR ---
patient resting up in bed, Denies any pain, no distress noted, call light in reach
[2018-07-28] MEDS: ONDANSETRON HCL 4 MG ORAL DISINTEGRATING TAB PO SCH ×3 (07:30→16:30)
[2018-07-28] MEDS: DOCUSATE SODIUM 100 MG CAP PO SCH ×2 (08:28→16:30)
[2018-07-28] MEDS: CARVEDILOL 12.5 MG TAB PO SCH ×2 (08:28→17:00)
[2018-07-28] MEDS: ISOSORBIDE MONONITRATE 30 MG TAB CR PO SCH (08:28)
[2018-07-28] MEDS: POTASSIUM CHLORIDE 20 MEQ TAB CR PO SCH (08:29)
[2018-07-28] MEDS: PREDNISONE 5 MG TAB PO SCH (08:29)
[2018-07-28] MEDS: NIACIN 500 MG TABSR PO SCH (08:29)
--- NOTE | 2018-07-28 11:47 | Progress Note ---
DATE: 07/28/2018 Cardiology Progress Note SUBJECTIVE: The patient denies chest pain or shortness of breath. She reports that she walked with physical therapy yesterday. OBJECTIVE: VITAL SIGNS: Temperature 97.4 degrees, pulse 80, respiratory rate 18, blood pressure 139/62, oxygen saturation 93% on room air. GENERAL: Elderly woman, awake and alert, in no acute distress. LUNGS: Clear to auscultation bilaterally. No wheezes or crackles. CARDIOVASCULAR: Normal rate, regular rhythm. A 2/6 systolic murmur. Normal S1, S2. ABDOMEN: Soft, nontender. EXTREMITIES: No edema. CARDIAC MEDICATIONS: Carvedilol 12.5 mg p.o. b.i.d., isosorbide mononitrate 60 mg p.o. daily, and levothyroxine 100 mcg p.o. daily. LABORATORY DATA: WBC 8.29, hemoglobin 11.8, hematocrit 37.4, platelets 214. Sodium 130, potassium 4, chloride 93, CO2 of 29, BUN 23, creatinine 1.87. TELEMETRY: V paced. IMPRESSION: 1. Acute on chronic systolic heart failure status post cardiac resynchronization therapy, implantable cardioverter-defibrillator. 2. Acute on chronic kidney disease versus chronic kidney disease. 3. Hyponatremia. 4. Paroxysmal atrial fibrillation. 5. Hypertension. 6. Hyperlipidemia. 7. Hypothyroidism. RECOMMENDATIONS: Diuretics were discontinued by Nephrology. Repeat BMP. The patient's symptoms are improved. We will monitor volume status for now. Continue current cardiac medications, otherwise. Keep the patient on telemetry. Physical therapy as tolerated. Thank you for this consult. We will continue to follow. Imelda Vela MD ABS/MODL /[id number]
[2018-07-28] MEDS: OXYCODONE/ACETAMINOPHEN 5-325 1 EACH TABLET PO PRN (12:48)
[2018-07-28] MEDS: SODIUM CHLORIDE 0.9% 1000ML 1,000 ML IV SCH ×2 (13:00→22:27)
[2018-07-28] MEDS ORDERED: ALBUMIN 5% 0.05 GM/ML BTL IV ONE (14:15)
[2018-07-28] MEDS ORDERED: ALBUMIN 5% 250ML 500 ML IV ONE (14:45)
--- NOTE | 2018-07-28 15:43 | NUR ---
cook cath inserted as ordered,clear yellow urine,16fr,10cc
--- NOTE | 2018-07-28 17:52 | NUR ---
PT UP IN BED ,DENIES PAIN ,ROMERO TO BSD CLEAR YELLOW URINE
--- NOTE | 2018-07-28 19:05 | NUR ---
Patient visited in room during nursing rounds. Patient alert and oriented x3. Patient resting in bed with HOB elevated 60 degrees per preference. Hahn in place. Patient currently receiving Albumin 5% per Dr. Burk's order. IVf to be switched to NS at 75ml/hr after albumin finishes infusing. Call zurita within reach.
[2018-07-28] MEDS: BIOTIN 5000 MG PO SCH (21:00)
[2018-07-28] MEDS: PRAVASTATIN 20 MG TAB PO SCH (21:00)
[2018-07-28] MEDS: MULTIVITAMINS/MINERALS TAB PO SCH (21:00)
[2018-07-28] MEDS: MELATONIN 5 MG TABLET PO SCH (21:00)
[2018-07-29] VITALS (8 sets, daily range): BP systolic 116–156; BP diastolic 58–73
--- NOTE | 2018-07-29 06:28 | NUR ---
IM- Progress Note O/N: no events REVIEW OF SYSTEMS: no f/c/s/N/V/D/EUGENE/vision changes/leg pain/back pain/dizziness. PHYSICAL EXAMINATION VITAL SIGNS: reviewed. GENERAL: A tired-appearing woman resting in bed. HEENT: Anicteric. Pupils reactive to light. No oral lesions. CARDIOVASCULAR: Normal S1 and S2. LUNGS: Moderately reduced BS ABDOMEN: Soft, nontender and nondistended. EXTREMITIES: No edema or calf tenderness. NEUROLOGICALLY: She is alert, oriented and appropriate. Moving all extremities. SKIN: Dry. PSYCHIATRIC: Flat affect. MUSCULOSKELETAL: Left-sided chest palpable pacemaker. LABS: Reviewed. ASSESSMENT: This is an 87-year-old woman 1. AECHF- systolic lVEF 30% 2.Hyponatremia 3.KARINA in CKD3 4.PAF 5.HTN 6.Physical deconditioning 7.Hypothyroidism PLAN 1.diuresis 2.control BP 3.f/u Na 4.f/u renal fn 5.HR control 6.Levothyroxine 7.PT consult 8.f/u cardio recs 9.strict I/O 10.U/S no leg dvt. 07/27 I/O not well documented? strict I/O; Renal U/S; nephr consult on high dose lasix. 07/28 lasix on hold 07/29 receiving some fluids f/u renal fn this am. Pratik Short MD, PhD.
[2018-07-29 06:40] LABS: ALBUMIN/GLOBULIN RATIO 1.6 (0.8-2.0); ANION GAP 14.9 mmol/L (8-16); CALCIUM 8.8 mg/dL (8.4-10.2); CREATININE, SERUM 1.69 mg/dL (0.57-1.11); POTASSIUM 4.9 mmol/L (3.5-5.1)
[2018-07-29] MEDS: LEVOTHYROXINE SODIUM 100 MCG TAB PO SCH (06:43)
--- NOTE | 2018-07-29 06:55 | NUR ---
beside report received. Patient alert and oriented and aware of change. Patient in no distress, call zurita within reach and bed in lowest position.
[2018-07-29] MEDS: CARVEDILOL 12.5 MG TAB PO SCH ×2 (08:15→16:45)
[2018-07-29] MEDS: ONDANSETRON HCL 4 MG ORAL DISINTEGRATING TAB PO SCH ×3 (08:15→16:45)
[2018-07-29] MEDS: NIACIN 500 MG TABSR PO SCH (08:15)
[2018-07-29] MEDS: ISOSORBIDE MONONITRATE 30 MG TAB CR PO SCH (08:15)
[2018-07-29] MEDS: PREDNISONE 5 MG TAB PO SCH (08:15)
[2018-07-29] MEDS: DOCUSATE SODIUM 100 MG CAP PO SCH ×2 (08:15→16:45)
[2018-07-29] MEDS: OXYCODONE/ACETAMINOPHEN 5-325 1 EACH TABLET PO PRN (10:40)
[2018-07-29] MEDS: DESMOPRESSIN ACETATE 0.2 MG TABLET PO SCH (12:45)
--- NOTE | 2018-07-29 15:06 | NUR ---
WOUND CARE - PUP SCREEN RE: 88 year-old with LOS >3 days. Rashard Score 16 on Regular Visco mattress. Rashard Score 18 Regular Visco - appropriate. Patient active, getting out of bed to bed side commode, Moisture being managed. Denies pain or discomfort. States she spends most of the time in bed but she does sit up at bedside multiple times a day and when getting up to bedside commode. Conservative PUP Skin Check Performed - No Pressure Ulcers Identified. RECOMMENDATION: Continue Current Treatment Plan. Addendum: 07/29/18 at 1513 by Andre Tinsley RN Amended: Links added.
--- NOTE | 2018-07-29 15:28 | Progress Note ---
DATE: 07/29/2018 Cardiology Progress Note. SUBJECTIVE: The patient denies chest pain or shortness of breath. OBJECTIVE: VITAL SIGNS: Temperature 96.8 degrees, pulse 88, respiratory rate 18, blood pressure 156/73, and oxygen 95% on room air. GENERAL: Awake, alert, no acute distress. LUNGS: Clear to auscultation bilaterally. No wheezes or crackles. CARDIOVASCULAR: Normal rate, regular rhythm. A 2/6 systolic murmur. Normal S1, S2. ABDOMEN: Soft, nontender. EXTREMITIES: No edema. CARDIAC MEDICATIONS: Coreg 12.5 mg p.o. b.i.d., isosorbide mononitrate 60 mg p.o. daily, and levothyroxine 100 mcg p.o. daily. LABORATORY DATA: Sodium 140, potassium 4.9, chloride 101, CO2 29, BUN 19, and creatinine 1.69. TELEMETRY: V-paced. IMPRESSION: 1. Qkmkz-qe-mamvyal systolic heart failure, status post cardiac resynchronization therapy, implantable cardioverter-defibrillator. 2. Fnscx-ul-dpcyaeh kidney disease. 3. Hyponatremia. 4. Paroxysmal atrial fibrillation. 5. Hypertension. 6. Hyperlipidemia. 7. Hypothyroidism. RECOMMENDATIONS: The patient's hyponatremia has resolved and her renal function has improved. Recommend stopping IV fluids at this time. Start diuretics and monitor volume status closely. Continue current cardiac medications otherwise. Keep the patient on telemetry. Physical therapy as tolerated. Thank you for this consult. We will continue to follow. Imelda Vela MD ABS/MODL /[id number]
--- NOTE | 2018-07-29 16:50 | NUR ---
CASE MANAGEMENT INITIAL ASSESSMENT Electronics Detail Draftsperson to bedside to discuss plan of care with patient/family. CM/SW role and care transitions discussed. Anticipated discharge plan discussed along with duration of care. CM/SW discussed patients right to make decisions in care. CM/SW work hours given. Patient lives: [facility] Admit/Transfer: ER Hospital/ER visits since last admit: NONE POA/Emergency contact: [facility] / [facility] Current/Previous Home Health: PT HAS BEEN ON SERVICE W 2 AGENCIES, BUT DO NOT REMEMBER THE NAMES. PCP/Follow-up Care: KILEY MILLIGAN Current/Previous DME: [facility], [place], [facility], [employer], [employer] Other Services: NONE Employment Status: RETIRED Areas of Concerns: NONE Referral Needs: NONE Education Needs: NONE IMM/WALTON given and signed (if applicable): SIGNED Goal for discharge: RETURN HOME CM/SW left business card at the bedside with contact information. Name and number was also written on the patients whiteboard. Patient verbalized understanding of discussion. CM will follow-up with ongoing discharge and transition of care needs.
--- NOTE | 2018-07-29 19:05 | NUR ---
manager shift nurse given report, patient aware of change, bed in lowest position and call zurita within reach
--- NOTE | 2018-07-29 19:10 | NUR ---
Patient visited in room during nursing rounds. Patient alert and oriented x3. Patient resting in bed with HOB elevated 60 degrees per preference. Hahn in place. Patient denies any discomfort or pain. Call zurita within reach. Will monitor closely.
--- NOTE | 2018-07-29 20:45 | NUR ---
Patient took a bath (with assistance from SPREADER BOX OPERATOR).
[2018-07-29] MEDS: BIOTIN 5000 MG PO SCH (21:00)
[2018-07-29] MEDS: PRAVASTATIN 20 MG TAB PO SCH (21:15)
[2018-07-29] MEDS: MELATONIN 5 MG TABLET PO SCH (21:15)
[2018-07-29] MEDS: MULTIVITAMINS/MINERALS TAB PO SCH (21:15)
[2018-07-30] VITALS (8 sets, daily range): BP systolic 107–150; BP diastolic 56–85
[2018-07-30] MEDS: LEVOTHYROXINE SODIUM 100 MCG TAB PO SCH (06:11)
[2018-07-30 06:34] LABS: ALBUMIN 3.8 g/dL (3.5-5.0); ALBUMIN/GLOBULIN RATIO 1.7 (0.8-2.0); ANION GAP 13.2 mmol/L (8-16); CALCIUM 8.8 mg/dL (8.4-10.2); CREATININE, SERUM 1.4 mg/dL (0.57-1.11); POTASSIUM 4.2 mmol/L (3.5-5.1)
--- NOTE | 2018-07-30 06:55 | NUR ---
rounded with fast food shift supervisor nurse, patient aware of change. Patient in no distress, call zurita within reach and bed in lowest position
[2018-07-30] MEDS: ONDANSETRON HCL 4 MG ORAL DISINTEGRATING TAB PO SCH ×3 (07:55→17:05)
[2018-07-30] MEDS: DOCUSATE SODIUM 100 MG CAP PO SCH ×2 (09:00→17:05)
[2018-07-30] MEDS: POLYETHYLENE GLYCOL 3350 17 GM PACK PO SCH ×2 (09:00→17:05)
[2018-07-30] MEDS: PREDNISONE 5 MG TAB PO SCH (09:00)
[2018-07-30] MEDS: ISOSORBIDE MONONITRATE 30 MG TAB CR PO SCH (09:00)
[2018-07-30] MEDS: NIACIN 500 MG TABSR PO SCH (09:00)
[2018-07-30] MEDS: CARVEDILOL 12.5 MG TAB PO SCH ×2 (09:00→17:05)
--- NOTE | 2018-07-30 10:27 | NUR ---
IM- Progress Note O/N: no events REVIEW OF SYSTEMS: no f/c/s/N/V/D/EUGENE/vision changes/leg pain/back pain/dizziness. PHYSICAL EXAMINATION VITAL SIGNS: reviewed. GENERAL: A tired-appearing woman resting in bed. HEENT: Anicteric. Pupils reactive to light. No oral lesions. CARDIOVASCULAR: Normal S1 and S2. LUNGS: Moderately reduced BS ABDOMEN: Soft, nontender and nondistended. EXTREMITIES: No edema or calf tenderness. NEUROLOGICALLY: She is alert, oriented and appropriate. Moving all extremities. SKIN: Dry. PSYCHIATRIC: Flat affect. MUSCULOSKELETAL: Left-sided chest palpable pacemaker. LABS: Reviewed. ASSESSMENT: This is an 87-year-old woman 1. AECHF- systolic lVEF 30% 2.Hyponatremia 3.KARINA in CKD3 4.PAF 5.HTN 6.Physical deconditioning 7.Hypothyroidism PLAN 1.diuresis 2.control BP 3.f/u Na 4.f/u renal fn 5.HR control 6.Levothyroxine 7.PT consult 8.f/u cardio recs 9.strict I/O 10.U/S no leg dvt. 07/27 I/O not well documented? strict I/O; Renal U/S; nephr consult on high dose lasix. 07/28 lasix on hold 07/29 receiving some fluids f/u renal fn this am. 07/30 renal fn improving; cleared by cardiology; at or near baseline renal fn. Pratik Short MD, PhD.
[2018-07-30] MEDS: FUROSEMIDE 40 MG TAB PO SCH (12:00)
--- NOTE | 2018-07-30 15:04 | Progress Note ---
DATE: 07/30/2018 Cardiology Progress Note SUBJECTIVE: The patient feels well, was ready to go home. Denies any chest pain or shortness of breath. OBJECTIVE: VITAL SIGNS: Stable. Heart rate is 80, respirations are 18, blood pressure is 130/76, and oxygen saturation is 95% on room air. GENERAL: This is a well-appearing elderly woman, lying comfortably in bed. HEENT: Head is normocephalic and atraumatic. Eyes, extraocular movements are intact. CARDIOVASCULAR: Regular rate and rhythm. LUNGS: Clear to auscultation. ABDOMEN: Soft and nontender. EXTREMITIES: No edema. CARDIOVASCULAR MEDICATIONS: Reviewed. LABORATORY DATA: Reviewed. Creatinine is 1.4. Her sodium level is 139. Telemetry monitoring revealed ventricular paced rhythm. IMPRESSION: 1. Lcqnr-ex-vmccnyc systolic congestive heart failure. 2. Presence of an implantable cardioverter-defibrillator. 3. Xdfib-ji-dodafty kidney disease. 4. Hyponatremia, improved. 5. Paroxysmal atrial fibrillation. RECOMMENDATIONS: The patient's laboratory values have normalized and her hyponatremia has resolved. We would restart Lasix 40 mg p.o. daily in addition to all of the current cardiovascular medications. The patient may be discharged from a cardiovascular standpoint with outpatient monitoring. DO JONATHAN Araya/AG /[id number]
[2018-07-30] MEDS: OXYCODONE/ACETAMINOPHEN 5-325 1 EACH TABLET PO PRN (15:16)
--- NOTE | 2018-07-30 19:10 | NUR ---
walking rounds made with spare parts clerk nurse, patient aware of change and in no distress. Call zurita within reach and bed in lowest position.
[2018-07-30] MEDS: BIOTIN 5000 MG PO SCH (21:00)
[2018-07-30] MEDS: MULTIVITAMINS/MINERALS TAB PO SCH (21:21)
[2018-07-30] MEDS: MELATONIN 5 MG TABLET PO SCH (21:21)
[2018-07-30] MEDS: PRAVASTATIN 20 MG TAB PO SCH (21:21)
--- NOTE | 2018-07-30 22:00 | NUR ---
2000: patient rounded : bed in lowest position and locked, needed items beside bed and call zurita placed close to patient, yellow socks on patient, bed alarm is on, room is free of clutter. patient is currently stable will continue to monitor. 2200: patient rounded : bed in lowest position and locked, needed items beside bed and call zurita placed close to patient, yellow socks on patient, bed alarm is on, room is free of clutter. patient is currently stable will continue to monitor
[2018-07-31] VITALS: BP 139/65
[2018-07-31 04:00] VITALS: BP 132/64
--- NOTE | 2018-07-31 04:00 | NUR ---
0400: Patient rounded and stable. 0600: patient rounded and stable.
[2018-07-31] MEDS: LEVOTHYROXINE SODIUM 100 MCG TAB PO SCH (05:27)
[2018-07-31 06:06] LABS: ANION GAP 13.6 mmol/L (8-16); CREATININE, SERUM 1.72 mg/dL (0.57-1.11); POTASSIUM 4.6 mmol/L (3.5-5.1)
--- NOTE | 2018-07-31 06:50 | NUR ---
rounded with shirt closer nurse, patient resting in bed. Patient in no distress, call zurita within reach and bed in lowest position.
--- NOTE | 2018-07-31 06:55 | NUR ---
Patient endorsed to next shift for continuity of care.
[2018-07-31 07:50] VITALS: BP 143/72
[2018-07-31] MEDS: ONDANSETRON HCL 4 MG ORAL DISINTEGRATING TAB PO SCH ×2 (07:55→11:47)
[2018-07-31 08:13] VITALS: BP 143/72
[2018-07-31] MEDS: POLYETHYLENE GLYCOL 3350 17 GM PACK PO SCH (09:10)
[2018-07-31] MEDS: NIACIN 500 MG TABSR PO SCH (09:10)
[2018-07-31] MEDS: FUROSEMIDE 40 MG TAB PO SCH (09:10)
[2018-07-31] MEDS: PREDNISONE 5 MG TAB PO SCH (09:10)
[2018-07-31] MEDS: ISOSORBIDE MONONITRATE 30 MG TAB CR PO SCH (09:10)
[2018-07-31] MEDS: CARVEDILOL 12.5 MG TAB PO SCH (09:10)
[2018-07-31] MEDS: DOCUSATE SODIUM 100 MG CAP PO SCH (09:10)
[2018-07-31] MEDS: DESMOPRESSIN ACETATE 0.2 MG TABLET PO SCH (11:47)
[2018-07-31 11:56] VITALS: BP 105/59
[2018-07-31] MEDS ORDERED: PREDNISONE5 MG PO (14:06)
[2018-07-31] MEDS ORDERED: MELATONIN5 M2 PO (14:06)
--- NOTE | 2018-07-31 14:16 | NUR ---
DIscharge summary: ASSESSMENT: This is an 87-year-old woman 1. AECHF- systolic lVEF 30% 2.Hyponatremia 3.KARINA in CKD3 4.PAF 5.HTN 6.Physical deconditioning 7.Hypothyroidism PLAN 1.diuresis 2.control BP 3.f/u Na 4.f/u renal fn 5.HR control 6.Levothyroxine 7.PT consult 8.f/u cardio recs 9.strict I/O 10.U/S no leg dvt. 07/27 I/O not well documented? strict I/O; Renal U/S; nephr consult on high dose lasix. 07/28 lasix on hold 07/29 receiving some fluids f/u renal fn this am. 07/30 renal fn improving; cleared by cardiology; at or near baseline renal fn. f/u pcp 1` week and cardiology 1 week condition; stable d/c >35mins d/c home. Pratik Short MD, PhD.
--- NOTE | 2018-07-31 15:50 | NUR ---
discontinued cook at this time, patient tolerated well. Catheter in tact and patient is due to void by 2350 tonight.
[2018-07-31 15:56] VITALS: BP 133/67
--- NOTE | 2018-07-31 16:50 | NUR ---
Patient was able to void post cook removal. Discharge instructions given at this time to patient and . Both verbalized understanding. IV removed at this time, catheter in tact and small dressing applied. Patient to leave floor via personal wheelchair, with belongings gathered by patient and to personal auto for to drive home.
== END 2018-07-31 17:25 | disposition home or self-care (01) | DRG 291 ==
LOC: IMCU 11:41 → OBSVTOIN 07-28 06:35 → MED/SURG3 07-28 10:15
PROVIDERS: ADMIT Internal Medicine; ATTEND Internal Medicine
DX: I13.0 Hypertensive heart and chronic kidney disease with heart failure and stage 1 through stage 4 chronic kidney disease, or unspecified chronic kidney disease (principal); I50.23 Acute on chronic systolic (congestive) heart failure; E87.1 Hypo-osmolality and hyponatremia; N17.9 Acute kidney failure, unspecified; E23.0 Hypopituitarism; N18.3 Chronic kidney disease, stage 3 (moderate); R53.81 Other malaise; I48.0 Paroxysmal atrial fibrillation; E03.9 Hypothyroidism, unspecified; E78.5 Hyperlipidemia, unspecified; Z95.0 Presence of cardiac pacemaker; I25.10 Atherosclerotic heart disease of native coronary artery without angina pectoris; E87.6 Hypokalemia
CPT/HCPCS: 36415; 71046; 76770; 80048; 80053; 82550; 82553; 83880; 84484; 85025; 85730; 93306; 93970; 96361; 97139; G0378; J1940; J3480; J7030; J7512

== ENCOUNTER 2018-08-08 12:12 | Observation (INO) | payer MEDICARE ==
[~2018-08-08] VITALS: Ht 172.7 cm; Wt 84.0 kg
[~2018-08-08 12:12] MED LIST changes: +DESMOPRESSIN A0.1 MG; +MELATONIN5 M2 PO; +PREDNISONE5 MG PO
[2018-08-08 13:57] LABS: BASOPHILS % 0.5 % (0.0-1.0); EOSINOPHILS # (AUTO) 0.5 (0.0-0.4); EOSINOPHILS % 6.2 % (0.0-6.0); HEMOGLOBIN 13.1 g/dL (12.0-16.0); LYMPHOCYTES # (AUTO) 1.2 (1.0-3.2); LYMPHOCYTES % 16.1 % (18.0-39.1); MEAN CORPUSCULAR HEMOGLOBIN 30.8 pg (28-32); MEAN CORPUSCULAR VOLUME 96.5 fL (81-99); MONOCYTES # (AUTO) 0.4 (0.2-0.8); MONOCYTES % 4.9 % (4.4-11.3); NEUTROPHILS # (AUTO) 5.3 (2.1-6.9); NEUTROPHILS % 71.9 % (38.7-80.0); PLATELET COUNT 259 x10e3/uL (140-360); RED BLOOD COUNT 4.25 x10e6/uL (3.6-5.1); RED CELL DISTRIBUTION WIDTH 16.3 % (11.7-14.4)
[2018-08-08 14:08] LABS: BILIRUBIN,URINE 2+ (NEGATIVE); CLARITY,URINE SL CLOUDY (CLEAR); COLOR,URINE YELLOW (YELLOW); KETONES,URINE TRACE (NEGATIVE); LEUKOCYTE ESTERASE ,URINE TRACE (NEGATIVE); NITRITE,URINE NEGATIVE (NEGATIVE); PROTEIN,URINE DIPSTICK NEGATIVE (NEGATIVE); URINE UROBILINOGEN 0.2 mg/dL (0.2 - 1)
[2018-08-08 14:09] LABS: STREPTOCOCCUS GRP A ANTIGEN NEGATIVE (NEGATIVE)
[2018-08-08 14:11] LABS: INR 1.26; PROTHROMBIN TIME 16.4 seconds (11.9-14.5)
[2018-08-08 14:12] LABS: PARTIAL THROMBOPLASTIN TIME 37.5 seconds (23.8-35.5)
[2018-08-08 14:19] LABS: ALBUMIN 3.5 g/dL (3.5-5.0); ALBUMIN/GLOBULIN RATIO 1.3 (0.8-2.0); ANION GAP 13.3 mmol/L (8-16); CREATININE, SERUM 1.93 mg/dL (0.57-1.11); INFLUENZAE A&B ANTIGEN (RAPID) NEGATIVE (NEGATIVE); MAGNESIUM 1.7 MG/DL (1.3-2.1); POTASSIUM 5.3 mmol/L (3.5-5.1)
[2018-08-08 14:28] LABS: CREATINE KINASE MB 1.3 ng/mL (0-5.0)
--- NOTE | 2018-08-08 14:57 | Diagnostic Imaging Report ---
Exam: Head CT without contrast History: Difficulty breathing Comparison studies: Head CT 12/30/2017. Technique: Axial images were obtained from the skull base to the vertex. Coronal and sagittal images reconstructed from the axial data. Dose modulation, iterative reconstruction, and/or weight based adjustment of the mA/kV was utilized to reduce the radiation dose to as low as reasonably achievable. Radiation dose: Total DLP: 832 mGy*cm. Estimated effective dose: DLP x 0.015 Intravenous contrast: None Findings: Scalp: Persistent soft tissue thickening which may reflect scarring in the right superomedial periorbital soft tissues. Bones: No fractures, blastic or lytic lesions. Brain sulci: Mildly prominent. Ventricles: Normal in size and configuration. No hydrocephalus. Extra-axial spaces: No masses, no fluid collection. Parenchyma: No mass, acute hemorrhage or acute cortical infarct. A few subtle ill-defined hypodensities in the supratentorial white matter are nonspecific but most compatible with chronic microvascular ischemic changes. Sellar/suprasellar region: No abnormalities. Craniocervical junction: Patent foramen magnum. No Chiari one malformation. Paranasal sinuses: Chronic inflammatory changes with chronic mucoperiosteal thickening in the bilateral maxillary sinuses as well as chronic left sphenoid sinus and right ethmoid air cell opacification. Incidental findings: Chronically mature changes at the right mastoid tip. Lens replacements for previous scattered surgery. Atherosclerotic calcifications in the carotid siphons in the right intradural vertebral artery. IMPRESSION: No acute intracranial abnormalities. Chronic findings: 1. Mild generalized brain volume loss. 2. Mild microvascular ischemic changes. 3. Inflammatory changes in the paranasal sinuses. Signed by: Dr. Nigel Ferrari M.D. on 08/08/2018 2:54 PM
--- NOTE | 2018-08-08 15:04 | Diagnostic Imaging Report ---
Examination: Single AP view of the chest. COMPARISON: 07/25/2018 INDICATION: Dyspnea DISCUSSION: Lungs are well-inflated. Stable patchy opacities in the lung bases. Borderline enlargement of the cardiac silhouette status post left subclavian approach implantable cardiac device, unchanged in position. No pulmonary edema. No acute osseous abnormality. Cervical spine fusion hardware projects over the lower C-spine. IMPRESSION: No acute cardiopulmonary abnormality. Stable age-related fibrotic changes versus subsegmental atelectasis in the lung bases. Stable borderline cardiomegaly without vascular decompensation. Signed by: Dr. Nigel Lee M.D. on 08/08/2018 3:01 PM
[2018-08-08 15:21] LABS: BACTERIA,URINE MANY /HPF; EPITHELIAL CELLS,URINE FEW /LPF
--- NOTE | 2018-08-08 15:30 | NUR ---
rec'd pt in rm 3 from the lobby via w/c. placed on the monitor and ekg done. bed low/locked and siderrails up x2. able to make needs known and has call zurita in hand
[2018-08-08] MEDS: CEFTRIAXONE SOD 1 GM/NS 50 ML 50 ML IV SCH ×2 (16:15→17:40)
[2018-08-08] MEDS ORDERED: SODIUM CHLORIDE 0.9% 500ML 500 ML IV ONE (16:45)
--- NOTE | 2018-08-08 17:45 | NUR ---
patient arrived on unit via personal wheelchair. Patient alert and oriented and in no distress. Call zurita within reach, bed in lowest position and at bedside.
[2018-08-08 18:01] VITALS: BP 124/59
[2018-08-08 18:14] VITALS: BP 124/59
--- NOTE | 2018-08-08 18:30 | NUR ---
called Dr Short in regards to patient's advanced directive. Confirmed with patient that she does not want any treatment aside from comfort measures in the case it is needed. Called to get an order to change patient from full code to DNR. Dr Short stated he would take care of it
--- NOTE | 2018-08-08 19:00 | NUR ---
rounded with maintenance supervisor 2nd shift nurse, patient aware of change and in no distress. Call zurita within reach and bed in lowest position
[2018-08-08 20:00] VITALS: BP 132/67
--- NOTE | 2018-08-08 23:48 | NUR ---
Called Dr. Short regarding restart of home meds or at least restart night meds since pt c/o not being able to sleep. Will await callback.
[2018-08-09] VITALS (7 sets, daily range): BP systolic 115–157; BP diastolic 59–86
[2018-08-09 00:08] LABS: CREATINE KINASE 53 IU/L (29-168)
[2018-08-09 03:52] LABS: CREATINE KINASE MB < 1.00 ng/mL (0-4.3)
[2018-08-09 05:47] LABS: BASOPHILS % 0.4 % (0.0-1.0); EOSINOPHILS # (AUTO) 1.1 (0.0-0.4); EOSINOPHILS % 15.1 % (0.0-6.0); HEMATOCRIT 37.1 % (34.2-44.1); HEMOGLOBIN 11.9 g/dL (12.0-16.0); LYMPHOCYTES # (AUTO) 1.6 (1.0-3.2); LYMPHOCYTES % 21.7 % (18.0-39.1); MEAN CORPUSCULAR HGB CONC 32.1 g/dL (31-35); MEAN CORPUSCULAR VOLUME 96.6 fL (81-99); MONOCYTES # (AUTO) 0.6 (0.2-0.8); MONOCYTES % 8.5 % (4.4-11.3); NEUTROPHILS # (AUTO) 3.9 (2.1-6.9); PLATELET COUNT 244 x10e3/uL (140-360); RED BLOOD COUNT 3.84 x10e6/uL (3.6-5.1); RED CELL DISTRIBUTION WIDTH 15.9 % (11.7-14.4)
[2018-08-09] MEDS: CEFTRIAXONE SOD 1 GM/NS 50 ML 50 ML IV SCH ×2 (05:55→18:00)
[2018-08-09 05:56] LABS: ALBUMIN 3.3 g/dL (3.5-5.0); ALBUMIN/GLOBULIN RATIO 1.4 (0.8-2.0); ANION GAP 13.9 mmol/L (8-16); CALCIUM 8.6 mg/dL (8.4-10.2); CREATININE, SERUM 1.6 mg/dL (0.57-1.11); POTASSIUM 4.9 mmol/L (3.5-5.1)
[2018-08-09] MEDS ORDERED: SODIUM CHLORIDE 0.9% 250ML 250 ML ONE (06:28)
--- NOTE | 2018-08-09 06:52 | NUR ---
PRIMARY CARE PHYSICIAN: Dr. Chaney. CHIEF COMPLAINT: confusion HISTORY OF PRESENT ILLNESS: This is an 87-year-old woman with confusion, found to have UTI and hyponatremia. PAST MEDICAL HISTORY: Atrial fibrillation, fall, right scalp hematoma, right periorbital hematoma due to fall, chronic systolic congestive heart failure LVEF 30%, acute kidney injury, chronic kidney disease stage III, hypertension, hypothyroidism, hyperlipidemia, pituitary tumor status post resection in , urinary tract infection, post menopausal bleed and hematuria, hyponatremia. PAST SURGICAL HISTORY: Permanent pacemaker placement, cholecystectomy, hemorrhoidectomy, resection of pituitary tumor in which was benign, right total knee replacement, Systolic CHF, PAF, UTI, Acute GIB ALLERGIES: PER ELECTRONIC MEDICAL RECORDS. FAMILY HISTORY/SOCIAL HISTORY: Patient is . She has 2 children. No alcohol, illicit, or cigarettes. MEDICATIONS: Per electronic medical records. REVIEW OF SYSTEMS: unreliable PHYSICAL EXAMINATION VITAL SIGNS: reviewed. GENERAL: A tired-appearing woman resting in bed. HEENT: Anicteric. Pupils reactive to light. No oral lesions. CARDIOVASCULAR: Normal S1 and S2. LUNGS: Moderately reduced BS ABDOMEN: Soft, nontender and nondistended. EXTREMITIES: No edema or calf tenderness. NEUROLOGICALLY: She is alert, oriented and appropriate. Moving all extremities. SKIN: Dry. PSYCHIATRIC: Flat affect. MUSCULOSKELETAL: Left-sided chest palpable pacemaker. LABS: Reviewed. ASSESSMENT: This is an 87-year-old woman 1.UTI 2.FRANCO 3.PAF 4.Systolic CHF LVEF 30% 5.Hyponatremia 6.KARINA in CKD3 7.HTn 8.hypothyroidism 9.HLD PLAN 1.iv abx 2.f/u cx 3.recheck bmp at 2pm 4.rehydrate Pratik Short MD, PhD.
[2018-08-09] MEDS: ONDANSETRON HCL INJ 2MG/ML 2ML 2 MG/ML VIAL IV PRN ×3 (08:10→16:51)
[2018-08-09] MEDS ORDERED: FUROSEMIDE 40 MG TAB PO SCH (09:00)
[2018-08-09] MEDS ORDERED: CARVEDILOL 3.125 MG TAB PO SCH (09:00)
[2018-08-09] MEDS ORDERED: RIVAROXABAN 10 MG TABLET PO SCH (09:00)
[2018-08-09] MEDS ORDERED: PREDNISONE 5 MG TAB PO SCH (09:00)
[2018-08-09] MEDS ORDERED: ISOSORBIDE MONONITRATE 30 MG TAB CR PO SCH (09:00)
[2018-08-09] MEDS ORDERED: POTASSIUM CHLORIDE 20 MEQ TAB CR PO SCH (09:00)
[2018-08-09] MEDS ORDERED: RIVAROXABAN 15 MG TABLET PO SCH (09:00)
[2018-08-09] MEDS: SODIUM CHLORIDE 1 GM TAB PO SCH ×3 (09:20→22:16)
[2018-08-09] MEDS: DOCUSATE SODIUM 100 MG CAP PO SCH ×2 (09:20→18:00)
[2018-08-09] MEDS: CARVEDILOL 12.5 MG TAB PO SCH ×2 (09:20→18:00)
--- NOTE | 2018-08-09 10:56 | NUR ---
SOCIAL WORK INITIAL ASSESSMENT Seed And Fertilizer Specialist to bedside to discuss plan of care with patient/family. CM/SW role and care transitions discussed. Anticipated discharge plan discussed along with duration of care. CM/SW discussed patients right to make decisions in care. CM/SW work hours given. Patient lives: WITH [facility] Admit/Transfer: VIA ED POA/Emergency contact: [facility] [phone] [place] [phone] Current/Previous Home Health: BEING SET UP THROUGH DR MILLIGAN OFFICE [facility] PCP/Follow-up Care: CHEL Current/Previous DME: [facility] Other Services: NONE Employment Status: RETIRED Areas of Concerns: NONE Referral Needs: NONE Education Needs: NONE IMM/WALTON given and signed (if applicable): UPON ADMISSION Goal for discharge: RETURN HOME CM/SW left business card at the bedside with contact information. Name and number was also written on the patients whiteboard. Patient verbalized understanding of discussion. CM will follow-up with ongoing discharge and transition of care needs.
[2018-08-09] MEDS ORDERED: ACETAMINOPHEN 325 MG TAB PO PRN (11:00)
[2018-08-09 13:48] LABS: CREATINE KINASE MB 1.3 ng/mL (0-5.0)
[2018-08-09 16:02] LABS: ANION GAP 16.6 mmol/L (8-16); CREATININE, SERUM 1.64 mg/dL (0.57-1.11); POTASSIUM 4.6 mmol/L (3.5-5.1)
[2018-08-09 16:20] LABS: CREATINE KINASE MB 1.6 ng/mL (0-5.0)
[2018-08-09] MEDS ORDERED: POLYETHYLENE GLYCOL 3350 17 GM PACK PO SCH (17:00)
--- NOTE | 2018-08-09 19:15 | NUR ---
ROUNDED WITH PAD MACHINE FEEDER NURSE, PATIENT AWARE OF CHANGE. CALL QIU WITHIN REACH AND BED IN LOWEST POSITION.
[2018-08-09] MEDS ORDERED: MELATONIN 5 MG TABLET PO SCH (21:00)
[2018-08-09] MEDS ORDERED: MELATONIN 3 MG TAB PO SCH (21:00)
--- NOTE | 2018-08-09 21:38 | NUR ---
DRY DRESSING CHANGE WITH NON ADHERENT STRIP PROVIDED TO THE SKIN TEAR ON THE RIGHT LEG, PATIENT TOLERATED PROCEDURE WELL. SHE DENIES PAIN, CALL LIGHT WITHIN EASY REACH.
[2018-08-10] VITALS: BP 111/64
--- NOTE | 2018-08-10 00:24 | NUR ---
PATIENT ASSISTED TO THE RESTROOM TO VOID, SHE'S NOW BACK IN BED AND SHE REFUSED TO HAVE HER BED ALARM ON. CALL LIGHT WITHIN EASY REACH, PATIENT INSTRUCTED TO CALL FOR ASSISTANCE UPON GETTING OUT OF THE BED. CHARGE NURSE MADE AWARE THAT THE PATIENT REFUSED THE BED ALARM TO BE PUT ON.
--- NOTE | 2018-08-10 03:57 | NUR ---
PATIENT IS STABLE WITHOUT RESPIRATORY DISTRESS, SHE DENIES PAIN. ASSISTED TO THE RESTROOM, SHE'S NOW BACK IN BED WITH CALL LIGHT IN EASY REACH.
[2018-08-10 04:00] VITALS: BP 124/69
[2018-08-10 05:44] LABS: BASOPHILS % 0.4 % (0.0-1.0); EOSINOPHILS % 14.9 % (0.0-6.0); HEMATOCRIT 36.8 % (34.2-44.1); HEMOGLOBIN 11.9 g/dL (12.0-16.0); LYMPHOCYTES # (AUTO) 1.9 (1.0-3.2); LYMPHOCYTES % 27.9 % (18.0-39.1); MEAN CORPUSCULAR HEMOGLOBIN 30.6 pg (28-32); MEAN CORPUSCULAR HGB CONC 32.3 g/dL (31-35); MEAN CORPUSCULAR VOLUME 94.6 fL (81-99); MONOCYTES # (AUTO) 0.6 (0.2-0.8); MONOCYTES % 8.6 % (4.4-11.3); NEUTROPHILS # (AUTO) 3.2 (2.1-6.9); NEUTROPHILS % 47.9 % (38.7-80.0); PLATELET COUNT 259 x10e3/uL (140-360); RED BLOOD COUNT 3.89 x10e6/uL (3.6-5.1)
[2018-08-10 06:03] LABS: ANION GAP 13.8 mmol/L (8-16); CALCIUM 8.7 mg/dL (8.4-10.2); CREATININE, SERUM 1.47 mg/dL (0.57-1.11); POTASSIUM 3.8 mmol/L (3.5-5.1)
[2018-08-10] MEDS: CEFTRIAXONE SOD 1 GM/NS 50 ML 50 ML IV SCH (06:17)
[2018-08-10] MEDS ORDERED: LEVOTHYROXINE SODIUM 50 MCG TAB PO SCH (06:30)
[2018-08-10] MEDS ORDERED: ZOFRAN4 MG PO (07:50)
[2018-08-10] MEDS ORDERED: KEFLEX500 MG PO (07:50)
[2018-08-10] MEDS ORDERED: SODIUM CHLORIDE1 GM PO (07:50)
[2018-08-10 07:52] VITALS: BP 132/70
[2018-08-10] MEDS: ONDANSETRON HCL INJ 2MG/ML 2ML 2 MG/ML VIAL IV PRN (08:15)
== END 2018-08-10 09:38 | disposition home or self-care (01) ==
LOC: ER 12:12 → ERHOLD 17:03 → IMCU 17:41
PROVIDERS: ADMIT Internal Medicine; ATTEND Internal Medicine
DX: N30.01 Acute cystitis with hematuria (principal); R41.82 Altered mental status, unspecified; I48.91 Unspecified atrial fibrillation; E78.5 Hyperlipidemia, unspecified; K21.9 Gastro-esophageal reflux disease without esophagitis; Z87.440 Personal history of urinary (tract) infections; Z88.8 Allergy status to other drugs, medicaments and biological substances; Z91.040 Latex allergy status; N17.9 Acute kidney failure, unspecified; E87.6 Hypokalemia; J01.90 Acute sinusitis, unspecified; E87.1 Hypo-osmolality and hyponatremia; I48.0 Paroxysmal atrial fibrillation; I13.0 Hypertensive heart and chronic kidney disease with heart failure and stage 1 through stage 4 chronic kidney disease, or unspecified chronic kidney disease; I50.22 Chronic systolic (congestive) heart failure; N18.3 Chronic kidney disease, stage 3 (moderate); E11.22 Type 2 diabetes mellitus with diabetic chronic kidney disease
CPT/HCPCS: 36415 ×3; 70450; 71045; 80048 ×2; 80053 ×2; 81001; 82140; 82150; 82550 ×2; 82553 ×2; 83518; 83605; 83690; 83735; 84484 ×2; 85025 ×3; 85610; 85730; 87040; 87070; 87086; 87400; 93005; 96365; 96367; 99284; G0378 ×3; J0696 ×3; J2405 ×2; J7040; J7050; J7512